=== PATIENT | male | born 1950 | race Caucasian/White ===

== ENCOUNTER 2022-04-20 09:36 | Inpatient (IN) | payer MEDICARE ==
[~2022-04-20] VITALS: Ht 182.9 cm; Wt 102.2 kg
[2022-04-20] MEDS ORDERED: VERA120C3 PO (10:05)
[2022-04-20] MEDS ORDERED: TAMS1CAP17 PO (10:05)
[2022-04-20] MEDS ORDERED: PRAV80TA2 PO (10:05)
[2022-04-20] MEDS ORDERED: XARE20TA PO (10:05)
[2022-04-20] MEDS ORDERED: DOXY100T PO (10:05)
[2022-04-20] MEDS ORDERED: ADV100INH INH (10:06)
[2022-04-20 11:35] LABS: BASO % 0.6 % (0.0-1.0); EOS % 0.3 % (0.0-3.0); HEMATOCRIT 27.5 % (42.0-52.0); LYMPH # 0.7 10^3/uL (1.5-5.0); LYMPH % 9.6 % (24.0-44.0); MEAN CORPUSCULAR HEMOGLOBIN 16.5 pg (27.0-33.0); MEAN CORPUSCULAR HGB CONC 25.5 g/dl (32.0-36.5); MONO # 0.5 10^3/uL (0.0-0.8); MONO % 7.2 % (2.0-8.0); NEUTROPHILS # 5.6 10^3/uL (1.5-8.5); PLATELET COUNT, AUTOMATED 352 10^3/uL (150-450); RED BLOOD COUNT 4.23 10^6/uL (4.30-6.10); WHITE BLOOD COUNT 6.8 10^3/uL (4.0-10.0)
[2022-04-20 11:44] LABS: INR 1.68; PROTHROMBIN TIME 20.2 SECONDS (12.7-14.5)
[2022-04-20 11:45] LABS: PARTIAL THROMBOPLASTIN TIME 40.3 SECONDS (25.9-37.0)
[2022-04-20 12:11] LABS: ALBUMIN 3.2 GM/DL (3.2-5.2); ALT/SGPT 16 U/L (12-78); BILIRUBIN,DIRECT 0.2 MG/DL (0.0-0.2); BILIRUBIN,TOTAL 0.5 MG/DL (0.2-1.0); BLOOD UREA NITROGEN 25 MG/DL (7-18); CALCIUM LEVEL 8.9 MG/DL (8.8-10.2); CARBON DIOXIDE LEVEL 26 MEQ/L (21-32); CHLORIDE LEVEL 110 MEQ/L (98-107); CREATININE FOR GFR 0.84 MG/DL (0.70-1.30); FERRITIN 17 NG/ML (26-388); GLOMERULAR FILTRATION RATE > 60.0 (>42); GLUCOSE, FASTING 100 MG/DL (70-100); LDH LACTATE DEHYDROGENASE 306 U/L (87-241); POTASSIUM SERUM 4.4 MEQ/L (3.5-5.1); SODIUM LEVEL 144 MEQ/L (136-145); TOTAL PROTEIN 6.4 GM/DL (6.4-8.2)
[2022-04-20] MEDS ORDERED: ALBUTEROL SULFATE 2.5 MG/0.5 ML INH NEB SOLN NEB PRN (13:05)
[2022-04-20] MEDS ORDERED: PANT40TA29 PO (14:31)
[2022-04-20] MEDS ORDERED: HOME MED LIST COMPLETE! XX SCH (14:35)
[2022-04-20] MEDS: FUROSEMIDE 40MG/4ML VIAL (J1940) IV SCH (14:48)
[2022-04-20 15:01] LABS: IRON (FE) 15 UG/DL (65-175); NT-PRO BNP 881 PG/ML (<125); PERCENT SATURATION 4.1 % (19.7-50.0); TOTAL IRON BINDING CAPACITY 369 UG/DL (250-450)
[2022-04-20 15:02] LABS: CK-MB VALUE MASS 2.1 NG/ML (<3.6); MB/CK RELATIVE INDEX 4.2 (< OR =4)
[2022-04-20 15:23] VITALS: BP 175/79
[2022-04-20 16:08] VITALS: BP 176/75
[2022-04-20 18:00] VITALS: BP 184/79
[2022-04-20 18:45] VITALS: BP 168/72
[2022-04-20] MEDS: ADVAIR HFA 45/21MCG INHALER INH SCH (19:58)
[2022-04-20 20:25] VITALS: BP 173/83
[2022-04-20 22:31] VITALS: BP 141/73
[2022-04-20] MEDS: SENNA 8.6 MG TAB (SENOKOT) PO SCH (22:36)
[2022-04-20] MEDS: PANTOPRAZOLE 40MG TAB (PROTONIX) PO SCH (22:37)
[2022-04-20] MEDS: DOCUSATE SODIUM 100MG CAPSULE PO SCH (22:37)
[2022-04-20] MEDS: FERROUS SULFATE 325MG TAB PO SCH (22:39)
[2022-04-20] MEDS: VERAPAMIL 120MG SR TAB PO SCH (22:39)
[2022-04-20] MEDS: TAMSULOSIN 0.4 MG CAP PO SCH (22:39)
[2022-04-20 23:08] LABS: HEMATOCRIT 30.9 % (42.0-52.0); HEMOGLOBIN 8.3 g/dl (13.5-17.5); MEAN CORPUSCULAR HGB CONC 26.9 g/dl (32.0-36.5); MEAN CORPUSCULAR VOLUME 67.2 fl (80.0-96.0); PLATELET COUNT, AUTOMATED 317 10^3/uL (150-450); WHITE BLOOD COUNT 6.7 10^3/uL (4.0-10.0)
[2022-04-21 06:18] VITALS: BP 133/57
[2022-04-21 06:45] LABS: HEMATOCRIT 27.8 % (42.0-52.0); HEMOGLOBIN 7.5 g/dl (13.5-17.5); MEAN CORPUSCULAR HEMOGLOBIN 17.9 pg (27.0-33.0); MEAN CORPUSCULAR VOLUME 66.3 fl (80.0-96.0); PLATELET COUNT, AUTOMATED 316 10^3/uL (150-450); RED BLOOD COUNT 4.19 10^6/uL (4.30-6.10); WHITE BLOOD COUNT 5.3 10^3/uL (4.0-10.0)
[2022-04-21 07:20] LABS: ALBUMIN 2.7 GM/DL (3.2-5.2); ALT/SGPT 13 U/L (12-78); BILIRUBIN,TOTAL 0.8 MG/DL (0.2-1.0); BLOOD UREA NITROGEN 17 MG/DL (7-18); CALCIUM LEVEL 8.2 MG/DL (8.8-10.2); CARBON DIOXIDE LEVEL 29 MEQ/L (21-32); CHLORIDE LEVEL 109 MEQ/L (98-107); CREATININE FOR GFR 0.83 MG/DL (0.70-1.30); GLOMERULAR FILTRATION RATE > 60.0 (>42); GLUCOSE, FASTING 80 MG/DL (70-100); POTASSIUM SERUM 3.8 MEQ/L (3.5-5.1); SODIUM LEVEL 144 MEQ/L (136-145); TOTAL PROTEIN 5.6 GM/DL (6.4-8.2)
[2022-04-21 07:30] VITALS: O2SAT 94
[2022-04-21] MEDS: ADVAIR HFA 45/21MCG INHALER INH SCH ×2 (07:30→20:07)
[2022-04-21] MEDS ORDERED: MIRALAX *UNIT DOSE* 17GM PACKET PO PRN (08:00)
[2022-04-21] MEDS: FERROUS SULFATE 325MG TAB PO SCH ×3 (08:56→20:17)
[2022-04-21] MEDS: DOCUSATE SODIUM 100MG CAPSULE PO SCH ×2 (08:56→20:11)
[2022-04-21] MEDS: FUROSEMIDE 40MG/4ML VIAL (J1940) IV SCH (08:56)
[2022-04-21] MEDS: PANTOPRAZOLE 40MG TAB (PROTONIX) PO SCH (08:56)
[2022-04-21] MEDS: PRAVASTATIN 20 MG TAB PO SCH (08:57)
[2022-04-21] MEDS ORDERED: LACTULOSE 20 GM/30 ML SYRUP UD PO ONE (10:20)
[2022-04-21] MEDS: BISACODYL 10 MG SUPP PR SCH ×2 (11:41→20:00)
[2022-04-21 14:00] VITALS: BP 119/52
[2022-04-21 17:07] LABS: HEMATOCRIT 29.1 % (42.0-52.0); HEMOGLOBIN 7.9 g/dl (13.5-17.5); MEAN CORPUSCULAR HGB CONC 27.1 g/dl (32.0-36.5); MEAN CORPUSCULAR VOLUME 66.1 fl (80.0-96.0); PLATELET COUNT, AUTOMATED 351 10^3/uL (150-450); WHITE BLOOD COUNT 6.2 10^3/uL (4.0-10.0)
[2022-04-21 20:00] VITALS: BP 131/60
[2022-04-21] MEDS: TAMSULOSIN 0.4 MG CAP PO SCH (20:11)
[2022-04-21] MEDS: VERAPAMIL 120MG SR TAB PO SCH (20:11)
[2022-04-21] MEDS: SENNA 8.6 MG TAB (SENOKOT) PO SCH (20:11)
[2022-04-22 06:00] VITALS: BP 128/57
[2022-04-22 06:00] LABS: HEMOGLOBIN 7.5 g/dl (13.5-17.5); MEAN CORPUSCULAR HEMOGLOBIN 17.8 pg (27.0-33.0); MEAN CORPUSCULAR HGB CONC 26.8 g/dl (32.0-36.5); MEAN CORPUSCULAR VOLUME 66.5 fl (80.0-96.0); PLATELET COUNT, AUTOMATED 347 10^3/uL (150-450); RED BLOOD COUNT 4.21 10^6/uL (4.30-6.10); WHITE BLOOD COUNT 5.1 10^3/uL (4.0-10.0)
[2022-04-22 06:29] LABS: ALBUMIN 2.7 GM/DL (3.2-5.2); ALT/SGPT 13 U/L (12-78); BILIRUBIN,TOTAL 0.5 MG/DL (0.2-1.0); BLOOD UREA NITROGEN 18 MG/DL (7-18); CALCIUM LEVEL 8.2 MG/DL (8.8-10.2); CARBON DIOXIDE LEVEL 29 MEQ/L (21-32); CHLORIDE LEVEL 108 MEQ/L (98-107); CREATININE FOR GFR 0.82 MG/DL (0.70-1.30); GLOMERULAR FILTRATION RATE > 60.0 (>42); GLUCOSE, FASTING 77 MG/DL (70-100); POTASSIUM SERUM 3.8 MEQ/L (3.5-5.1); SODIUM LEVEL 143 MEQ/L (136-145); TOTAL PROTEIN 5.6 GM/DL (6.4-8.2)
[2022-04-22 07:48] VITALS: O2SAT 98
[2022-04-22] MEDS: ADVAIR HFA 45/21MCG INHALER INH SCH ×2 (07:48→19:47)
[2022-04-22] MEDS: BISACODYL 10 MG SUPP PR SCH ×2 (09:35→20:33)
[2022-04-22] MEDS: PANTOPRAZOLE 40MG TAB (PROTONIX) PO SCH (09:36)
[2022-04-22] MEDS: DOCUSATE SODIUM 100MG CAPSULE PO SCH ×2 (09:36→20:29)
[2022-04-22] MEDS: PRAVASTATIN 20 MG TAB PO SCH (09:36)
[2022-04-22] MEDS: FERROUS SULFATE 325MG TAB PO SCH ×2 (09:36→20:33)
[2022-04-22 14:00] VITALS: BP 146/68
[2022-04-22] MEDS ORDERED: BISACODYL 5 MG TAB PO ONE (20:00)
[2022-04-22] MEDS ORDERED: GOLYTELY SOLN 4000 ML BTL PO ONE (20:00)
[2022-04-22] MEDS: SENNA 8.6 MG TAB (SENOKOT) PO SCH (20:29)
[2022-04-22] MEDS: TAMSULOSIN 0.4 MG CAP PO SCH (20:29)
[2022-04-22] MEDS: VERAPAMIL 120MG SR TAB PO SCH (20:32)
[2022-04-22 22:00] VITALS: BP 145/67
[2022-04-23 05:11] VITALS: BP 127/55
[2022-04-23 06:47] LABS: HEMATOCRIT 30.7 % (42.0-52.0); HEMOGLOBIN 8.4 g/dl (13.5-17.5); MEAN CORPUSCULAR HEMOGLOBIN 18.3 pg (27.0-33.0); MEAN CORPUSCULAR HGB CONC 27.4 g/dl (32.0-36.5); MEAN CORPUSCULAR VOLUME 66.7 fl (80.0-96.0); PLATELET COUNT, AUTOMATED 398 10^3/uL (150-450); WHITE BLOOD COUNT 5.5 10^3/uL (4.0-10.0)
[2022-04-23 07:08] LABS: ALBUMIN 3.1 GM/DL (3.2-5.2); ALT/SGPT 14 U/L (12-78); BILIRUBIN,TOTAL 0.5 MG/DL (0.2-1.0); BLOOD UREA NITROGEN 10 MG/DL (7-18); CALCIUM LEVEL 8.6 MG/DL (8.8-10.2); CARBON DIOXIDE LEVEL 30 MEQ/L (21-32); CHLORIDE LEVEL 106 MEQ/L (98-107); CREATININE FOR GFR 0.81 MG/DL (0.70-1.30); GLOMERULAR FILTRATION RATE > 60.0 (>42); GLUCOSE, FASTING 82 MG/DL (70-100); POTASSIUM SERUM 3.5 MEQ/L (3.5-5.1); SODIUM LEVEL 141 MEQ/L (136-145); TOTAL PROTEIN 6.3 GM/DL (6.4-8.2)
[2022-04-23] MEDS: ADVAIR HFA 45/21MCG INHALER INH SCH ×2 (07:32→19:35)
[2022-04-23] MEDS: FERROUS SULFATE 325MG TAB PO SCH ×2 (08:56→22:11)
[2022-04-23] MEDS: PANTOPRAZOLE 40MG TAB (PROTONIX) PO SCH (08:56)
[2022-04-23] MEDS: PRAVASTATIN 20 MG TAB PO SCH (08:56)
[2022-04-23] MEDS: DOCUSATE SODIUM 100MG CAPSULE PO SCH ×2 (08:57→21:00)
[2022-04-23] MEDS: BISACODYL 10 MG SUPP PR SCH ×2 (08:57→21:00)
[2022-04-23] MEDS ORDERED: propofoL 200 MG/20 ML VIAL As Ordered ONE (15:23)
[2022-04-23] MEDS ORDERED: LIDOCAINE 2% 100MG/5ML SDV (FOR ANES.) As Ordered ONE (15:23)
[2022-04-23 16:58] VITALS: BP 149/60
[2022-04-23 17:28] VITALS: BP 149/61
[2022-04-23] MEDS ORDERED: MIRA1POW3 PO (19:06)
[2022-04-23] MEDS ORDERED: COLA100C5 PO (19:06)
[2022-04-23] MEDS ORDERED: SENN18TA PO (19:06)
[2022-04-23] MEDS ORDERED: FERR1TAB8 PO (19:06)
[2022-04-23 20:51] VITALS: BP 139/60
[2022-04-23] MEDS: SENNA 8.6 MG TAB (SENOKOT) PO SCH (21:00)
[2022-04-23] MEDS ORDERED: IRON SUCROSE 100 MG in NS 100 ML OVER 1 HR IV SCH (21:00)
[2022-04-23] MEDS: TAMSULOSIN 0.4 MG CAP PO SCH (22:11)
[2022-04-23 22:12] VITALS: BP 150/64
[2022-04-23] MEDS: VERAPAMIL 120MG SR TAB PO SCH (22:12)
[2022-04-24 05:18] VITALS: BP 139/61
[2022-04-24 06:09] LABS: HEMATOCRIT 27.3 % (42.0-52.0); HEMOGLOBIN 7.4 g/dl (13.5-17.5); MEAN CORPUSCULAR HEMOGLOBIN 18.2 pg (27.0-33.0); MEAN CORPUSCULAR HGB CONC 27.1 g/dl (32.0-36.5); MEAN CORPUSCULAR VOLUME 67.1 fl (80.0-96.0); PLATELET COUNT, AUTOMATED 360 10^3/uL (150-450); RED BLOOD COUNT 4.07 10^6/uL (4.30-6.10)
[2022-04-24 06:33] LABS: ALBUMIN 2.6 GM/DL (3.2-5.2); ALT/SGPT 11 U/L (12-78); BILIRUBIN,TOTAL 0.4 MG/DL (0.2-1.0); BLOOD UREA NITROGEN 10 MG/DL (7-18); CALCIUM LEVEL 8.1 MG/DL (8.8-10.2); CARBON DIOXIDE LEVEL 29 MEQ/L (21-32); CHLORIDE LEVEL 109 MEQ/L (98-107); CREATININE FOR GFR 0.78 MG/DL (0.70-1.30); GLOMERULAR FILTRATION RATE > 60.0 (>42); GLUCOSE, FASTING 68 MG/DL (70-100); POTASSIUM SERUM 3.9 MEQ/L (3.5-5.1); SODIUM LEVEL 142 MEQ/L (136-145); TOTAL PROTEIN 5.3 GM/DL (6.4-8.2)
[2022-04-24] MEDS: ADVAIR HFA 45/21MCG INHALER INH SCH (07:51)
[2022-04-24 07:52] VITALS: O2SAT 99
[2022-04-24] MEDS: FERROUS SULFATE 325MG TAB PO SCH (08:28)
[2022-04-24] MEDS: PRAVASTATIN 20 MG TAB PO SCH (08:28)
[2022-04-24] MEDS: BISACODYL 10 MG SUPP PR SCH (08:28)
[2022-04-24] MEDS: DOCUSATE SODIUM 100MG CAPSULE PO SCH (08:28)
[2022-04-24] MEDS: PANTOPRAZOLE 40MG TAB (PROTONIX) PO SCH (08:28)
[2022-04-24] MEDS ORDERED: FUROSEMIDE 40 MG TAB PO SCH (09:00)
[2022-04-24] MEDS ORDERED: IRON SUCROSE 100 MG in NS 100 ML OVER 1 HR IV ONE (10:00)
[2022-04-24 12:54] VITALS: BP 139/61
[2022-04-24 13:07] VITALS: BP 141/62
[2022-04-24 14:07] VITALS: BP 152/69
[2022-04-24 14:26] VITALS: BP 105/72
[2022-04-24 15:34] LABS: HEMATOCRIT 32.9 % (42.0-52.0); HEMOGLOBIN 9.1 g/dl (13.5-17.5); MEAN CORPUSCULAR HEMOGLOBIN 19.2 pg (27.0-33.0); MEAN CORPUSCULAR HGB CONC 27.7 g/dl (32.0-36.5); MEAN CORPUSCULAR VOLUME 69.6 fl (80.0-96.0); PLATELET COUNT, AUTOMATED 393 10^3/uL (150-450); RED BLOOD COUNT 4.73 10^6/uL (4.30-6.10); WHITE BLOOD COUNT 5.2 10^3/uL (4.0-10.0)
[2022-04-24] MEDS ORDERED: LASI40TA9 PO (16:34)
== END 2022-04-24 17:49 | disposition home or self-care (01) | DRG 375 ==
LOC: M ED 09:36 → M ED INP 13:01 → ENRESERV 20:51 → M MSPAV 22:23
PROVIDERS: ADMIT Internal Medicine; ATTEND Internal Medicine
PROC: 0DB98ZX Excision of Duodenum, Via Natural or Artificial Opening Endoscopic, Diagnostic (ICD-10-PCS; 2022-04-23)
PROC: 0DBK8ZX Excision of Ascending Colon, Via Natural or Artificial Opening Endoscopic, Diagnostic (ICD-10-PCS; principal; 2022-04-23 15:00)
DX: C18.2 Malignant neoplasm of ascending colon (principal); J96.11 Chronic respiratory failure with hypoxia; D50.9 Iron deficiency anemia, unspecified; N40.0 Benign prostatic hyperplasia without lower urinary tract symptoms; G47.33 Obstructive sleep apnea (adult) (pediatric); E78.5 Hyperlipidemia, unspecified; Z79.01 Long term (current) use of anticoagulants; I48.91 Unspecified atrial fibrillation; R53.1 Weakness; I10 Essential (primary) hypertension; J44.9 Chronic obstructive pulmonary disease, unspecified; K46.9 Unspecified abdominal hernia without obstruction or gangrene; Z79.899 Other long term (current) drug therapy; I45.10 Unspecified right bundle-branch block; Z87.891 Personal history of nicotine dependence; K57.30 Diverticulosis of large intestine without perforation or abscess without bleeding; K31.7 Polyp of stomach and duodenum; K64.8 Other hemorrhoids

== ENCOUNTER → 2022-04-30 | Outpatient (CLI) | payer MEDICARE ==
[~2022-04-30] MED LIST: ADV100INH INH; COLA100C5 PO; DOXY100T PO; FERR1TAB8 PO; LASI40TA9 PO; MIRA1POW3 PO; PANT40TA29 PO; PRAV80TA2 PO; SENN18TA PO; TAMS1CAP17 PO; VERA120C3 PO; XARE20TA PO
== END ==
LOC: M PLAIMG 12:40
PROVIDERS: ATTEND General Practice
DX: C18.2 Malignant neoplasm of ascending colon (principal); J43.9 Emphysema, unspecified; I99.9 Unspecified disorder of circulatory system

== ENCOUNTER → 2022-05-09 | Outpatient (CLI) | payer MEDICARE ==
[~2022-05-09] MED LIST changes: +GASTROGRAFIN SOLUTION 30ML (Q9963) As Ordered ONE; +ISOVUE-370 76% 100ML VIAL As Ordered ONE
== END ==
LOC: M RAD 16:07
PROVIDERS: ATTEND Physician Assistant
DX: C18.2 Malignant neoplasm of ascending colon (principal)
CPT/HCPCS: 71260; 74178; Q9963; Q9967

== ENCOUNTER → 2022-05-12 | Outpatient (CLI) | payer MEDICARE ==
[~2022-05-12] MED LIST changes: +FURO20TA2 PO; +FURO40TA2 PO; -GASTROGRAFIN SOLUTION 30ML (Q9963) As Ordered ONE; -ISOVUE-370 76% 100ML VIAL As Ordered ONE; +METR-265 PO
== END ==
LOC: M LABSMTC 11:05
PROVIDERS: ATTEND Anesthesiology
DX: Z01.812 Encounter for preprocedural laboratory examination (principal); Z20.822 Contact with and (suspected) exposure to COVID-19

== ENCOUNTER 2022-05-16 05:58 | Inpatient (IN) | payer MEDICARE ==
[~2022-05-16] VITALS: Ht 182.9 cm; Wt 88.1 kg
[2022-05-16] VITALS (8 sets, daily range): BP systolic 141–151; BP diastolic 62–69; O2SAT 95
[~2022-05-16 05:58] MED LIST changes: -FURO20TA2 PO; -FURO40TA2 PO; -METR-265 PO
[2022-05-16] MEDS ORDERED: HEPARIN SOD (PORCINE) 5000UNITS/ML 1ML VIAL/SYRINGE SQ ONE (06:00)
[2022-05-16] MEDS ORDERED: CelecoXIB 400 MG CAP PO ONE (06:00)
[2022-05-16] MEDS ORDERED: cefoTEtan DISODIUM 2 GM in D5W MINI-BAG PLUS 50 ML IV ONE (06:00)
[2022-05-16] MEDS ORDERED: LR 1,000 ML IV SCH ×2 (06:35→13:50)
[2022-05-16] MEDS ORDERED: METR-265 PO (06:38)
[2022-05-16] MEDS ORDERED: LIDOCAINE 1% SDV 30ML VIAL As Ordered ONE (07:16)
[2022-05-16] MEDS ORDERED: BUPIVACAINE HCL 0.25% 10ML VIAL As Ordered ONE (07:16)
[2022-05-16] MEDS ORDERED: BUPIVACAINE LIPOSOME/PF 1.3% 20ML VIAL (13.3MG/ML)(EXPAREL) As Ordered ONE (07:17)
[2022-05-16] MEDS ORDERED: LACRILUBE (AKWA TEARS) OPHTH OINT 3.5 GM As Ordered ONE (07:17)
[2022-05-16] MEDS ORDERED: BUPIVACAINE HCL 0.25% 30ML VIAL As Ordered ONE (07:17)
[2022-05-16] MEDS ORDERED: IPRATROPIUM 0.5MG/ALBUTEROL 2.5MG INH SOL UD 3ML (DUONEB) NEB ONE (07:20)
[2022-05-16] MEDS ORDERED: propofoL 200 MG/20 ML VIAL As Ordered ONE ×3 (07:20→13:30)
[2022-05-16] MEDS ORDERED: ONDANSETRON 4MG 2ML VIAL As Ordered ONE (07:21)
[2022-05-16] MEDS ORDERED: ROCURONIUM BROMIDE 50 MG/5 ML VIAL As Ordered ONE (07:21)
[2022-05-16] MEDS ORDERED: LIDOCAINE 2% 100MG/5ML SDV (FOR ANES.) As Ordered ONE ×3 (07:21→11:47)
[2022-05-16] MEDS ORDERED: fentaNYL 100 MCG/2 ML INJECTION As Ordered ONE ×2 (07:21→09:22)
[2022-05-16] MEDS ORDERED: dexameTHASONE 4 MG/ML 1ML VIAL (J1100 PER 1MG) As Ordered ONE (07:21)
[2022-05-16] MEDS ORDERED: metroNIDAZOLE 500 MG in IV 1 EA IV ONE (07:35)
[2022-05-16] MEDS ORDERED: MIDAZOLAM INJ 2MG/2ML VIAL (J2250 PER 1MG) As Ordered ONE (07:43)
[2022-05-16] MEDS ORDERED: VECURONIUM BROMIDE 10MG VIAL As Ordered ONE (08:27)
[2022-05-16] MEDS ORDERED: INDOCYANINE GREEN 25MG VIAL (IC-GREEN) As Ordered ONE (11:36)
[2022-05-16] MEDS ORDERED: KETOROLAC 60MG 2ML VIAL As Ordered ONE (12:07)
[2022-05-16] MEDS ORDERED: SUGAMMADEX SODIUM 500 MG/5 ML VIAL (BRIDION) As Ordered ONE (12:07)
[2022-05-16] MEDS ORDERED: ACETAMINOPHEN 1000MG 100ML IV BTL (OFIRMEV) (J0131 PER 10MG) As Ordered ONE (12:13)
[2022-05-16] MEDS ORDERED: MORPHINE 2 MG/ML 1ML VIAL IV PRN (13:50)
[2022-05-16] MEDS ORDERED: oxyCODONE 5MG TAB PO PRN (13:50)
[2022-05-16] MEDS ORDERED: fentaNYL 100 MCG/2 ML INJECTION IV PRN (13:50)
[2022-05-16] MEDS ORDERED: ONDANSETRON 4MG 2ML VIAL IV PRN (13:50)
[2022-05-16] MEDS ORDERED: MORPHINE 4 MG/ML 1ML VIAL/SYRINGE IV PRN (14:00)
[2022-05-16] MEDS: LR 1,000 ML IV SCH ×2 (15:58→20:32)
[2022-05-16] MEDS: ACETAMINOPHEN TAB 650MG DOSE (2X325MG) PO SCH (17:13)
[2022-05-16] MEDS ORDERED: FURO20TA2 PO (17:45)
[2022-05-16] MEDS ORDERED: FERR1TAB8 PO (17:45)
[2022-05-16] MEDS ORDERED: FURO40TA2 PO (17:46)
[2022-05-16] MEDS ORDERED: HOME MED LIST COMPLETE! XX SCH (17:50)
[2022-05-16] MEDS: TAMSULOSIN 0.4 MG CAP PO SCH (20:30)
[2022-05-16] MEDS: FERROUS SULFATE 325MG TAB PO SCH (20:30)
[2022-05-16] MEDS: oxyCODONE 5MG TAB PO PRN (20:31)
[2022-05-16] MEDS: ADVAIR HFA 45/21MCG INHALER INH SCH (20:48)
[2022-05-16] MEDS ORDERED: VERAPAMIL 120MG SR TAB PO SCH (21:00)
[2022-05-17] VITALS (8 sets, daily range): BP systolic 114–146; BP diastolic 52–95; O2SAT 96–97
[2022-05-17] MEDS: ACETAMINOPHEN TAB 650MG DOSE (2X325MG) PO SCH ×4 (00:07→17:13)
[2022-05-17] MEDS: LR 1,000 ML IV SCH ×2 (06:08→17:13)
[2022-05-17 06:10] LABS: BASO % 0.1 % (0.0-1.0); HEMATOCRIT 34.6 % (42.0-52.0); HEMOGLOBIN 10.1 g/dl (13.5-17.5); LYMPH # 0.5 10^3/uL (1.5-5.0); MEAN CORPUSCULAR HGB CONC 29.2 g/dl (32.0-36.5); MEAN CORPUSCULAR VOLUME 75.2 fl (80.0-96.0); MONO # 0.5 10^3/uL (0.0-0.8); MONO % 4.3 % (2.0-8.0); NEUTROPHILS # 10.5 10^3/uL (1.5-8.5); NEUTROPHILS % 91.1 % (36.0-66.0); PLATELET COUNT, AUTOMATED 239 10^3/uL (150-450); WHITE BLOOD COUNT 11.5 10^3/uL (4.0-10.0)
[2022-05-17 06:42] LABS: BLOOD UREA NITROGEN 16 MG/DL (7-18); CARBON DIOXIDE LEVEL 26 MEQ/L (21-32); CHLORIDE LEVEL 105 MEQ/L (98-107); GLOMERULAR FILTRATION RATE > 60.0 (>42); GLUCOSE, FASTING 124 MG/DL (70-100); SODIUM LEVEL 137 MEQ/L (136-145)
[2022-05-17] MEDS: ADVAIR HFA 45/21MCG INHALER INH SCH ×2 (07:11→19:35)
[2022-05-17 07:12] LABS: HYPOCHROMASIA 3+; OVALOCYTES 2+
[2022-05-17 07:13] LABS: ANISOCYTOSIS 2+; PLATELET ESTIMATE NORMAL (NORMAL)
[2022-05-17] MEDS: FERROUS SULFATE 325MG TAB PO SCH ×2 (08:25→20:08)
[2022-05-17] MEDS: PANTOPRAZOLE 40MG VIAL IV SCH (08:26)
[2022-05-17] MEDS: ENOXAPARIN 40MG/0.4ML SYRINGE (J1650 PER 10MG) SC SCH (08:26)
[2022-05-17] MEDS: ALVIMOPAN 12 MG CAPSULE (ENTEREG) PO SCH ×2 (10:24→20:08)
[2022-05-17] MEDS: TAMSULOSIN 0.4 MG CAP PO SCH (20:08)
[2022-05-17] MEDS: oxyCODONE 5MG TAB PO PRN (20:08)
[2022-05-17] MEDS: PRAVASTATIN 20 MG TAB PO SCH (20:08)
[2022-05-18] MEDS: ACETAMINOPHEN TAB 650MG DOSE (2X325MG) PO SCH ×4 (01:25→17:58)
[2022-05-18] MEDS: LR 1,000 ML IV SCH ×2 (03:57→20:04)
[2022-05-18 06:00] VITALS: BP 146/73
[2022-05-18 06:18] LABS: BASO % 0.2 % (0.0-1.0); EOS % 0.1 % (0.0-3.0); HEMATOCRIT 37.5 % (42.0-52.0); HEMOGLOBIN 10.5 g/dl (13.5-17.5); LYMPH # 0.8 10^3/uL (1.5-5.0); LYMPH % 7.2 % (24.0-44.0); MEAN CORPUSCULAR HEMOGLOBIN 21.3 pg (27.0-33.0); MEAN CORPUSCULAR VOLUME 76.2 fl (80.0-96.0); MONO # 0.6 10^3/uL (0.0-0.8); MONO % 5.1 % (2.0-8.0); NEUTROPHILS # 9.5 10^3/uL (1.5-8.5); NEUTROPHILS % 86.9 % (36.0-66.0); PLATELET COUNT, AUTOMATED 232 10^3/uL (150-450); RED BLOOD COUNT 4.92 10^6/uL (4.30-6.10); WHITE BLOOD COUNT 10.9 10^3/uL (4.0-10.0)
[2022-05-18 06:58] LABS: OVALOCYTES 1+
[2022-05-18 06:59] LABS: ANISOCYTOSIS 2+; HYPOCHROMASIA 2+
[2022-05-18 07:00] LABS: POIKILOCYTOSIS 1+
[2022-05-18 07:01] LABS: MICROCYTOSIS 1+; SCHISTOCYTES 1+
[2022-05-18 07:02] LABS: PLATELET ESTIMATE NORMAL (NORMAL)
[2022-05-18 07:03] LABS: BLOOD UREA NITROGEN 10 MG/DL (7-18); C REACTIVE PROTEIN QUANTITATIV 8.28 MG/DL (0.00-0.30); CALCIUM LEVEL 8.6 MG/DL (8.8-10.2); CARBON DIOXIDE LEVEL 31 MEQ/L (21-32); CHLORIDE LEVEL 106 MEQ/L (98-107); GLOMERULAR FILTRATION RATE > 60.0 (>42); GLUCOSE, FASTING 96 MG/DL (70-100); POTASSIUM SERUM 4.1 MEQ/L (3.5-5.1); SODIUM LEVEL 138 MEQ/L (136-145)
[2022-05-18] MEDS: ADVAIR HFA 45/21MCG INHALER INH SCH ×2 (07:33→19:37)
[2022-05-18 07:34] VITALS: O2SAT 93
[2022-05-18] MEDS: FERROUS SULFATE 325MG TAB PO SCH ×2 (08:21→20:04)
[2022-05-18] MEDS: PANTOPRAZOLE 40MG VIAL IV SCH (08:21)
[2022-05-18] MEDS: ENOXAPARIN 40MG/0.4ML SYRINGE (J1650 PER 10MG) SC SCH (08:21)
[2022-05-18] MEDS: ALVIMOPAN 12 MG CAPSULE (ENTEREG) PO SCH ×2 (08:21→20:03)
[2022-05-18 14:00] VITALS: BP 133/76
[2022-05-18] MEDS: oxyCODONE 5MG TAB PO PRN (14:43)
[2022-05-18] MEDS: ONDANSETRON 4MG 2ML VIAL IV PRN (17:58)
[2022-05-18] MEDS: PRAVASTATIN 20 MG TAB PO SCH (20:03)
[2022-05-18] MEDS: TAMSULOSIN 0.4 MG CAP PO SCH (20:04)
[2022-05-18 20:15] VITALS: O2SAT 97
[2022-05-18] MEDS: KETOROLAC 30 MG/ML 1ML VIAL IV PRN (20:33)
[2022-05-18 21:19] VITALS: BP 139/76
[2022-05-19] VITALS (9 sets, daily range): BP systolic 147–184; BP diastolic 73–92; O2SAT 93–98
[2022-05-19] MEDS: ACETAMINOPHEN TAB 650MG DOSE (2X325MG) PO SCH ×4 (03:28→17:13)
[2022-05-19] MEDS: KETOROLAC 30 MG/ML 1ML VIAL IV PRN ×3 (04:43→18:34)
[2022-05-19 05:56] LABS: BASO % 0.2 % (0.0-1.0); EOS # 0.4 10^3/uL (0.0-0.5); EOS % 4.3 % (0.0-3.0); HEMATOCRIT 36.4 % (42.0-52.0); HEMOGLOBIN 10.5 g/dl (13.5-17.5); LYMPH # 0.8 10^3/uL (1.5-5.0); LYMPH % 9.2 % (24.0-44.0); MEAN CORPUSCULAR HEMOGLOBIN 22.1 pg (27.0-33.0); MEAN CORPUSCULAR HGB CONC 28.8 g/dl (32.0-36.5); MEAN CORPUSCULAR VOLUME 76.5 fl (80.0-96.0); MONO # 0.5 10^3/uL (0.0-0.8); MONO % 6.1 % (2.0-8.0); NEUTROPHILS # 6.8 10^3/uL (1.5-8.5); NEUTROPHILS % 79.6 % (36.0-66.0); PLATELET COUNT, AUTOMATED 233 10^3/uL (150-450); RED BLOOD COUNT 4.76 10^6/uL (4.30-6.10); WHITE BLOOD COUNT 8.6 10^3/uL (4.0-10.0)
[2022-05-19 06:24] LABS: BLOOD UREA NITROGEN 10 MG/DL (7-18); C REACTIVE PROTEIN QUANTITATIV 5.03 MG/DL (0.00-0.30); CALCIUM LEVEL 8.5 MG/DL (8.8-10.2); CARBON DIOXIDE LEVEL 28 MEQ/L (21-32); CHLORIDE LEVEL 106 MEQ/L (98-107); CREATININE FOR GFR 0.76 MG/DL (0.70-1.30); GLOMERULAR FILTRATION RATE > 60.0 (>42); GLUCOSE, FASTING 88 MG/DL (70-100); POTASSIUM SERUM 3.6 MEQ/L (3.5-5.1); SODIUM LEVEL 139 MEQ/L (136-145)
[2022-05-19 06:33] LABS: ANISOCYTOSIS 2+
[2022-05-19 06:34] LABS: POIKILOCYTOSIS 1+; SCHISTOCYTES 2+
[2022-05-19 06:35] LABS: OVALOCYTES 1+
[2022-05-19 06:37] LABS: MICROCYTOSIS 1+
[2022-05-19 06:38] LABS: POLYCHROMASIA 1+
[2022-05-19 06:39] LABS: PLATELET ESTIMATE NORMAL (NORMAL)
[2022-05-19 06:40] LABS: HYPOCHROMASIA 1+
[2022-05-19] MEDS: ADVAIR HFA 45/21MCG INHALER INH SCH ×2 (08:50→20:10)
[2022-05-19] MEDS: ENOXAPARIN 40MG/0.4ML SYRINGE (J1650 PER 10MG) SC SCH (08:54)
[2022-05-19] MEDS: LR 1,000 ML IV SCH ×2 (08:54→23:04)
[2022-05-19] MEDS: FERROUS SULFATE 325MG TAB PO SCH ×2 (08:54→23:03)
[2022-05-19] MEDS: PANTOPRAZOLE 40MG VIAL IV SCH (08:54)
[2022-05-19] MEDS: ALVIMOPAN 12 MG CAPSULE (ENTEREG) PO SCH ×2 (08:54→23:03)
[2022-05-19] MEDS: PRAVASTATIN 20 MG TAB PO SCH (23:03)
[2022-05-19] MEDS: TAMSULOSIN 0.4 MG CAP PO SCH (23:03)
[2022-05-19] MEDS: oxyCODONE 5MG TAB PO PRN (23:04)
[2022-05-19] MEDS: ONDANSETRON 4MG 2ML VIAL IV PRN (23:17)
[2022-05-20] MEDS: KETOROLAC 30 MG/ML 1ML VIAL IV PRN ×2 (02:24→18:17)
[2022-05-20 04:54] VITALS: O2SAT 98
[2022-05-20 05:51] VITALS: BP 152/77
[2022-05-20] MEDS: ACETAMINOPHEN TAB 650MG DOSE (2X325MG) PO SCH ×4 (05:54→18:00)
[2022-05-20 06:12] LABS: BASO % 0.5 % (0.0-1.0); EOS # 0.3 10^3/uL (0.0-0.5); HEMATOCRIT 35.7 % (42.0-52.0); HEMOGLOBIN 10.2 g/dl (13.5-17.5); LYMPH # 0.7 10^3/uL (1.5-5.0); LYMPH % 11.2 % (24.0-44.0); MEAN CORPUSCULAR HEMOGLOBIN 21.7 pg (27.0-33.0); MEAN CORPUSCULAR HGB CONC 28.6 g/dl (32.0-36.5); MONO # 0.4 10^3/uL (0.0-0.8); NEUTROPHILS # 4.7 10^3/uL (1.5-8.5); PLATELET COUNT, AUTOMATED 217 10^3/uL (150-450); WHITE BLOOD COUNT 6.2 10^3/uL (4.0-10.0)
[2022-05-20 06:50] LABS: BLOOD UREA NITROGEN 10 MG/DL (7-18); CARBON DIOXIDE LEVEL 27 MEQ/L (21-32); CHLORIDE LEVEL 103 MEQ/L (98-107); CREATININE FOR GFR 0.64 MG/DL (0.70-1.30); GLOMERULAR FILTRATION RATE > 60.0 (>42); GLUCOSE, FASTING 71 MG/DL (70-100); POTASSIUM SERUM 3.5 MEQ/L (3.5-5.1); SODIUM LEVEL 137 MEQ/L (136-145)
[2022-05-20 07:02] LABS: ANISOCYTOSIS 4+; HYPOCHROMASIA 1+; MICROCYTOSIS 1+; PLATELET ESTIMATE NORMAL (NORMAL); POIKILOCYTOSIS 1+
[2022-05-20 07:03] LABS: OVALOCYTES 2+; SCHISTOCYTES 2+
[2022-05-20] MEDS: ADVAIR HFA 45/21MCG INHALER INH SCH ×2 (08:12→21:21)
[2022-05-20] MEDS: PANTOPRAZOLE 40MG VIAL IV SCH (09:14)
[2022-05-20] MEDS: FERROUS SULFATE 325MG TAB PO SCH ×2 (09:15→20:20)
[2022-05-20] MEDS: ALVIMOPAN 12 MG CAPSULE (ENTEREG) PO SCH ×2 (09:15→20:20)
[2022-05-20] MEDS: ENOXAPARIN 40MG/0.4ML SYRINGE (J1650 PER 10MG) SC SCH (09:15)
[2022-05-20] MEDS: oxyCODONE 5MG TAB PO PRN ×2 (09:50→20:21)
[2022-05-20 10:10] VITALS: O2SAT 98
[2022-05-20] MEDS: LR 1,000 ML IV SCH (13:56)
[2022-05-20 14:00] VITALS: BP 166/77
[2022-05-20] MEDS: TAMSULOSIN 0.4 MG CAP PO SCH (20:20)
[2022-05-20] MEDS: ONDANSETRON 4MG 2ML VIAL IV PRN (20:20)
[2022-05-20] MEDS: PRAVASTATIN 20 MG TAB PO SCH (20:21)
[2022-05-20 21:00] VITALS: BP 165/74
[2022-05-21] MEDS: LR 1,000 ML IV SCH ×2 (04:00→17:55)
[2022-05-21] MEDS: ACETAMINOPHEN TAB 650MG DOSE (2X325MG) PO SCH ×4 (05:06→17:08)
[2022-05-21 05:16] VITALS: BP 163/74
[2022-05-21] MEDS: ONDANSETRON 4MG 2ML VIAL IV PRN ×2 (05:57→20:20)
[2022-05-21] MEDS: GASTROGRAFIN SOLUTION 30ML PO SCH ×2 (06:04→06:34)
[2022-05-21] MEDS: KETOROLAC 30 MG/ML 1ML VIAL IV PRN (06:27)
[2022-05-21] MEDS ORDERED: ISOVUE-370 76% 100ML VIAL As Ordered ONE (07:10)
[2022-05-21] MEDS: ADVAIR HFA 45/21MCG INHALER INH SCH ×2 (08:14→19:13)
[2022-05-21] MEDS ORDERED: MIRALAX *UNIT DOSE* 17GM PACKET PO ONE (09:00)
[2022-05-21 09:45] VITALS: O2SAT 95
[2022-05-21] MEDS: PANTOPRAZOLE 40MG VIAL IV SCH (09:46)
[2022-05-21] MEDS: ENOXAPARIN 40MG/0.4ML SYRINGE (J1650 PER 10MG) SC SCH (09:47)
[2022-05-21] MEDS: FERROUS SULFATE 325MG TAB PO SCH ×2 (09:47→20:21)
[2022-05-21] MEDS: VERAPAMIL 120MG SR TAB PO SCH (09:47)
[2022-05-21] MEDS: ALVIMOPAN 12 MG CAPSULE (ENTEREG) PO SCH ×2 (09:47→20:21)
[2022-05-21 10:30] VITALS: BP 150/74
[2022-05-21] MEDS: oxyCODONE 5MG TAB PO PRN ×3 (10:41→20:22)
[2022-05-21 14:00] VITALS: BP 144/76
[2022-05-21] MEDS: TAMSULOSIN 0.4 MG CAP PO SCH (20:21)
[2022-05-21] MEDS: PRAVASTATIN 20 MG TAB PO SCH (20:22)
[2022-05-21 22:00] VITALS: BP 147/75
[2022-05-22] MEDS: ACETAMINOPHEN TAB 650MG DOSE (2X325MG) PO SCH ×4 (00:46→17:39)
[2022-05-22 06:00] VITALS: BP 144/75
[2022-05-22 07:24] LABS: EOS # 0.4 10^3/uL (0.0-0.5); EOS % 9.6 % (0.0-3.0); HEMATOCRIT 36.1 % (42.0-52.0); HEMOGLOBIN 10.3 g/dl (13.5-17.5); LYMPH # 0.5 10^3/uL (1.5-5.0); LYMPH % 11.4 % (24.0-44.0); MEAN CORPUSCULAR HEMOGLOBIN 21.8 pg (27.0-33.0); MEAN CORPUSCULAR HGB CONC 28.5 g/dl (32.0-36.5); MEAN CORPUSCULAR VOLUME 76.3 fl (80.0-96.0); MONO # 0.6 10^3/uL (0.0-0.8); MONO % 14.1 % (2.0-8.0); NEUTROPHILS # 2.6 10^3/uL (1.5-8.5); NEUTROPHILS % 63.7 % (36.0-66.0); PLATELET COUNT, AUTOMATED 214 10^3/uL (150-450); RED BLOOD COUNT 4.73 10^6/uL (4.30-6.10); WHITE BLOOD COUNT 4.1 10^3/uL (4.0-10.0)
[2022-05-22 07:31] LABS: BLOOD UREA NITROGEN 12 MG/DL (7-18); C REACTIVE PROTEIN QUANTITATIV 9.24 MG/DL (0.00-0.30); CALCIUM LEVEL 8.2 MG/DL (8.8-10.2); CARBON DIOXIDE LEVEL 27 MEQ/L (21-32); CHLORIDE LEVEL 103 MEQ/L (98-107); CREATININE FOR GFR 0.56 MG/DL (0.70-1.30); GLOMERULAR FILTRATION RATE > 60.0 (>42); GLUCOSE, FASTING 66 MG/DL (70-100); POTASSIUM SERUM 3.3 MEQ/L (3.5-5.1); SODIUM LEVEL 137 MEQ/L (136-145)
[2022-05-22] MEDS: LR 1,000 ML IV SCH (07:31)
[2022-05-22] MEDS: ADVAIR HFA 45/21MCG INHALER INH SCH ×2 (07:35→19:18)
[2022-05-22] MEDS: MOM 30ML SUSPENSION UDC PO SCH ×4 (08:49→20:27)
[2022-05-22] MEDS: PANTOPRAZOLE 40MG VIAL IV SCH (08:50)
[2022-05-22] MEDS: POTASSIUM CHLORIDE 10MEQ SR TABLET PO SCH (08:51)
[2022-05-22] MEDS: ALVIMOPAN 12 MG CAPSULE (ENTEREG) PO SCH ×2 (08:52→20:20)
[2022-05-22] MEDS: FERROUS SULFATE 325MG TAB PO SCH ×2 (08:52→20:20)
[2022-05-22] MEDS: VERAPAMIL 120MG SR TAB PO SCH (08:52)
[2022-05-22] MEDS ORDERED: LIDOCAINE 1% MDV 20ML VIAL As Ordered ONE (13:49)
[2022-05-22 14:00] VITALS: BP 146/68
[2022-05-22] MEDS: ENOXAPARIN 40MG/0.4ML SYRINGE (J1650 PER 10MG) SC SCH (16:05)
[2022-05-22] MEDS: SODIUM CHLORIDE 0.9% INJ 10 ML SYR IV SCH (17:40)
[2022-05-22] MEDS ORDERED: AMINO AC/ELECTROLYTE/DEX/CALC 2,566 ML IV SCH (18:00)
[2022-05-22] MEDS: TAMSULOSIN 0.4 MG CAP PO SCH (20:20)
[2022-05-22] MEDS: PRAVASTATIN 20 MG TAB PO SCH (20:20)
[2022-05-22] MEDS: oxyCODONE 5MG TAB PO PRN (20:28)
[2022-05-22 20:30] VITALS: O2SAT 93
[2022-05-22 20:36] VITALS: BP 162/71
[2022-05-22 21:30] VITALS: BP 146/71
[2022-05-23] MEDS: MOM 30ML SUSPENSION UDC PO SCH ×6 (00:45→20:24)
[2022-05-23] MEDS: ACETAMINOPHEN TAB 650MG DOSE (2X325MG) PO SCH ×4 (00:46→17:39)
[2022-05-23] MEDS: SODIUM CHLORIDE 0.9% INJ 10 ML SYR IV SCH ×2 (05:05→18:32)
[2022-05-23 05:42] VITALS: BP 155/73
[2022-05-23] MEDS: ADVAIR HFA 45/21MCG INHALER INH SCH ×2 (07:58→19:34)
[2022-05-23] MEDS: ALVIMOPAN 12 MG CAPSULE (ENTEREG) PO SCH ×2 (09:41→20:28)
[2022-05-23] MEDS: POTASSIUM CHLORIDE 10MEQ SR TABLET PO SCH (09:42)
[2022-05-23] MEDS: ENOXAPARIN 40MG/0.4ML SYRINGE (J1650 PER 10MG) SC SCH (09:43)
[2022-05-23] MEDS: FERROUS SULFATE 325MG TAB PO SCH ×2 (09:43→20:28)
[2022-05-23] MEDS: PANTOPRAZOLE 40MG VIAL IV SCH (09:43)
[2022-05-23] MEDS: VERAPAMIL 120MG SR TAB PO SCH (09:43)
[2022-05-23] MEDS: SODIUM CHLORIDE 0.9% INJ 10 ML SYR IV PRN (09:44)
[2022-05-23] MEDS ORDERED: GASTROGRAFIN SOLUTION 30ML (Q9963) As Ordered ONE (10:49)
[2022-05-23 14:20] VITALS: BP 150/70
[2022-05-23] MEDS ORDERED: AMINO AC/ELECTROLYTE/DEX/CALC 2,566 ML IV SCH (18:00)
[2022-05-23] MEDS: oxyCODONE 5MG TAB PO PRN (20:26)
[2022-05-23] MEDS: TAMSULOSIN 0.4 MG CAP PO SCH (20:27)
[2022-05-23] MEDS: PRAVASTATIN 20 MG TAB PO SCH (20:28)
[2022-05-23 22:00] VITALS: BP 149/70
[2022-05-23 22:57] VITALS: O2SAT 93
[2022-05-24] MEDS: ACETAMINOPHEN TAB 650MG DOSE (2X325MG) PO SCH ×4 (01:07→18:19)
[2022-05-24] MEDS: MOM 30ML SUSPENSION UDC PO SCH ×3 (01:15→09:28)
[2022-05-24 06:00] VITALS: BP 139/74
[2022-05-24] MEDS: SODIUM CHLORIDE 0.9% INJ 10 ML SYR IV SCH ×2 (06:11→18:20)
[2022-05-24 06:38] LABS: HEMATOCRIT 39.6 % (42.0-52.0); HEMOGLOBIN 11.6 g/dl (13.5-17.5); MEAN CORPUSCULAR HEMOGLOBIN 22.4 pg (27.0-33.0); MEAN CORPUSCULAR HGB CONC 29.3 g/dl (32.0-36.5); MEAN CORPUSCULAR VOLUME 76.3 fl (80.0-96.0); PLATELET COUNT, AUTOMATED 289 10^3/uL (150-450); RED BLOOD COUNT 5.19 10^6/uL (4.30-6.10); WHITE BLOOD COUNT 5.2 10^3/uL (4.0-10.0)
[2022-05-24 07:11] LABS: ANISOCYTOSIS 2+; BLOOD UREA NITROGEN 29 MG/DL (7-18); CARBON DIOXIDE LEVEL 36 MEQ/L (21-32); CHLORIDE LEVEL 96 MEQ/L (98-107); CREATININE FOR GFR 1.09 MG/DL (0.70-1.30); EOSINOPHILS 3 % (0-3); GLOMERULAR FILTRATION RATE > 60.0 (>42); GLUCOSE, FASTING 133 MG/DL (70-100); HYPOCHROMASIA 2+; LYMPHOCYTES 18 % (16-44); MONOCYTES 4 % (0-5); NEUTROPHILS 59 % (28-66); OVALOCYTES 1+; POIKILOCYTOSIS 2+; POTASSIUM SERUM 3.1 MEQ/L (3.5-5.1); SODIUM LEVEL 136 MEQ/L (136-145)
[2022-05-24 07:13] LABS: PLATELET ESTIMATE NORMAL (NORMAL)
[2022-05-24] MEDS: ADVAIR HFA 45/21MCG INHALER INH SCH ×2 (08:02→21:10)
[2022-05-24] MEDS: FERROUS SULFATE 325MG TAB PO SCH (09:00)
[2022-05-24 09:20] VITALS: BP 132/75
[2022-05-24] MEDS: POTASSIUM CHLORIDE 10MEQ SR TABLET PO SCH (09:27)
[2022-05-24] MEDS: VERAPAMIL 120MG SR TAB PO SCH (09:28)
[2022-05-24] MEDS: PANTOPRAZOLE 40MG VIAL IV SCH (09:28)
[2022-05-24] MEDS: ENOXAPARIN 40MG/0.4ML SYRINGE (J1650 PER 10MG) SC SCH (09:28)
[2022-05-24] MEDS: oxyCODONE 5MG TAB PO PRN ×2 (09:33→20:28)
[2022-05-24] MEDS ORDERED: KCL 10MEQ/100ML SWI (KRUN) 10 MEQ in IV 1 EA IV ONE (09:35)
[2022-05-24 14:00] VITALS: BP_SYST 132; BP_SYST 146; BP_DIAS 65; BP_DIAS 77
[2022-05-24] MEDS: INSULIN LISPRO (NovoLOG) PER UNIT SC SCH (18:00)
[2022-05-24] MEDS ORDERED: MULTIVITAMIN -ADULT INJECTION 10 ML, ZINC/COPPER/MANGANESE/SELENIUM 1 ML, POTASSIUM CHL... IV SCH ×4 (18:00)
[2022-05-24] MEDS: ONDANSETRON 4MG 2ML VIAL IV PRN (20:26)
[2022-05-24] MEDS: TAMSULOSIN 0.4 MG CAP PO SCH (20:29)
[2022-05-24] MEDS: PRAVASTATIN 20 MG TAB PO SCH (20:29)
[2022-05-24 20:46] VITALS: BP 145/77
[2022-05-25] MEDS: ACETAMINOPHEN TAB 650MG DOSE (2X325MG) PO SCH ×5 (00:34→23:48)
[2022-05-25] MEDS: oxyCODONE 5MG TAB PO PRN ×5 (05:14→20:55)
[2022-05-25 05:18] VITALS: BP 134/76
[2022-05-25] MEDS: INSULIN LISPRO (NovoLOG) PER UNIT SC SCH ×5 (05:21→23:49)
[2022-05-25] MEDS: SODIUM CHLORIDE 0.9% INJ 10 ML SYR IV SCH ×2 (05:21→17:40)
[2022-05-25] MEDS: ADVAIR HFA 45/21MCG INHALER INH SCH ×2 (07:40→20:00)
[2022-05-25] MEDS: SODIUM CHLORIDE 0.9% INJ 10 ML SYR IV PRN ×2 (09:53→11:42)
[2022-05-25] MEDS: PANTOPRAZOLE 40MG VIAL IV SCH (09:53)
[2022-05-25] MEDS: VERAPAMIL 120MG SR TAB PO SCH (09:54)
[2022-05-25] MEDS: ENOXAPARIN 40MG/0.4ML SYRINGE (J1650 PER 10MG) SC SCH (09:54)
[2022-05-25 10:13] LABS: HEMATOCRIT 38.8 % (42.0-52.0); HEMOGLOBIN 11.2 g/dl (13.5-17.5); MEAN CORPUSCULAR HEMOGLOBIN 22.2 pg (27.0-33.0); MEAN CORPUSCULAR HGB CONC 28.9 g/dl (32.0-36.5); PLATELET COUNT, AUTOMATED 313 10^3/uL (150-450); RED BLOOD COUNT 5.04 10^6/uL (4.30-6.10); WHITE BLOOD COUNT 6.2 10^3/uL (4.0-10.0)
[2022-05-25 10:40] LABS: ATYPICAL LYMPH 1 % (0-5); BASOPHILS 1 % (0-1); EOSINOPHILS 4 % (0-3); LYMPHOCYTES 11 % (16-44); MONOCYTES 9 % (0-5); NEUTROPHILS 64 % (28-66); PLASMA CELL 1 % (0-0)
[2022-05-25 10:43] LABS: PLATELET ESTIMATE NORMAL (NORMAL)
[2022-05-25 10:44] LABS: SCHISTOCYTES 2+
[2022-05-25 10:46] LABS: ANISOCYTOSIS 2+; HYPOCHROMASIA 2+; OVALOCYTES 1+; POIKILOCYTOSIS 1+
[2022-05-25] MEDS ORDERED: KCL 10MEQ/100ML SWI (KRUN) 10 MEQ in IV 1 EA IV ONE (10:50)
[2022-05-25 12:32] VITALS: O2SAT 91
[2022-05-25 14:00] VITALS: BP 134/70
[2022-05-25] MEDS ORDERED: AMINO AC IV SCH (18:00)
[2022-05-25] MEDS ORDERED: ELECTROLYTE IV SCH (18:00)
[2022-05-25] MEDS ORDERED: POTASSIUM CHLORIDE IV SCH (18:00)
[2022-05-25] MEDS ORDERED: CALC IV SCH (18:00)
[2022-05-25] MEDS ORDERED: DEX IV SCH (18:00)
[2022-05-25 20:03] VITALS: BP 133/71
[2022-05-25] MEDS: TAMSULOSIN 0.4 MG CAP PO SCH (20:54)
[2022-05-25] MEDS: PRAVASTATIN 20 MG TAB PO SCH (20:54)
[2022-05-26] VITALS (9 sets, daily range): BP systolic 98–135; BP diastolic 59–73
[2022-05-26] MEDS: ACETAMINOPHEN TAB 650MG DOSE (2X325MG) PO SCH ×5 (01:17→23:50)
[2022-05-26] MEDS: SODIUM CHLORIDE 0.9% INJ 10 ML SYR IV SCH ×2 (05:17→18:32)
[2022-05-26] MEDS: INSULIN LISPRO (NovoLOG) PER UNIT SC SCH ×4 (05:17→23:50)
[2022-05-26] MEDS ORDERED: fentaNYL 100 MCG/2 ML INJECTION As Ordered ONE (07:21)
[2022-05-26] MEDS ORDERED: MIDAZOLAM INJ 2MG/2ML VIAL (J2250 PER 1MG) As Ordered ONE (07:21)
[2022-05-26] MEDS ORDERED: HYDROmorphone HCL 2MG/ML 1ML VIAL As Ordered ONE (07:21)
[2022-05-26] MEDS ORDERED: KETOROLAC 60MG 2ML VIAL As Ordered ONE (07:22)
[2022-05-26] MEDS ORDERED: propofoL 200 MG/20 ML VIAL As Ordered ONE (07:22)
[2022-05-26] MEDS ORDERED: ROCURONIUM BROMIDE 50 MG/5 ML VIAL As Ordered ONE (07:22)
[2022-05-26] MEDS ORDERED: ONDANSETRON 4MG 2ML VIAL As Ordered ONE (07:22)
[2022-05-26] MEDS ORDERED: dexameTHASONE 4 MG/ML 1ML VIAL (J1100 PER 1MG) As Ordered ONE (07:22)
[2022-05-26] MEDS ORDERED: LIDOCAINE 2% INJ 100 MG/5 ML SYRINGE As Ordered ONE (07:22)
[2022-05-26 07:26] LABS: ALBUMIN 2.7 GM/DL (3.2-5.2); ALT/SGPT 12 U/L (12-78); BILIRUBIN,TOTAL 0.4 MG/DL (0.2-1.0); BLOOD UREA NITROGEN 49 MG/DL (7-18); CALCIUM LEVEL 8.6 MG/DL (8.8-10.2); CARBON DIOXIDE LEVEL 34 MEQ/L (21-32); CHLORIDE LEVEL 92 MEQ/L (98-107); CREATININE FOR GFR 1.23 MG/DL (0.70-1.30); GLOMERULAR FILTRATION RATE > 60.0 (>42); GLUCOSE, FASTING 120 MG/DL (70-100); POTASSIUM SERUM 3.8 MEQ/L (3.5-5.1); SODIUM LEVEL 131 MEQ/L (136-145); TOTAL PROTEIN 6.2 GM/DL (6.4-8.2)
[2022-05-26] MEDS ORDERED: ACETAMINOPHEN 1000MG 100ML IV BTL (OFIRMEV) (J0131 PER 10MG) As Ordered ONE (07:29)
[2022-05-26] MEDS ORDERED: SUGAMMADEX SODIUM 500 MG/5 ML VIAL (BRIDION) As Ordered ONE (07:34)
[2022-05-26] MEDS: ADVAIR HFA 45/21MCG INHALER INH SCH ×2 (07:38→19:24)
[2022-05-26] MEDS ORDERED: ZOSYN 3.375GM VIAL As Ordered ONE (07:56)
[2022-05-26] MEDS: PANTOPRAZOLE 40MG VIAL IV SCH (08:08)
[2022-05-26] MEDS: VERAPAMIL 120MG SR TAB PO SCH (08:09)
[2022-05-26] MEDS ORDERED: BUPIVACAINE HCL 0.25% 10ML VIAL As Ordered ONE (08:12)
[2022-05-26] MEDS ORDERED: BUPIVACAINE LIPOSOME/PF 1.3% 20ML VIAL (13.3MG/ML)(EXPAREL) As Ordered ONE (08:12)
[2022-05-26] MEDS ORDERED: ETOMIDATE INJ 20MG/10ML VIAL As Ordered ONE (08:56)
[2022-05-26] MEDS ORDERED: PHENYLephrine 500MCG 5ML (100MCG/ML) SYRINGE As Ordered ONE (09:41)
[2022-05-26] MEDS ORDERED: PHENYLEPHRINE 10MG/ML 1ML VIAL (J2370 PER 1) As Ordered ONE (09:44)
[2022-05-26] MEDS ORDERED: VASOPRESSIN INJ 20 UNITS/ML VIAL As Ordered ONE (10:08)
[2022-05-26] MEDS: ENOXAPARIN 40MG/0.4ML SYRINGE (J1650 PER 10MG) SC SCH (10:17)
[2022-05-26] MEDS ORDERED: MORPHINE 2 MG/ML 1ML VIAL IV PRN (11:10)
[2022-05-26] MEDS ORDERED: fentaNYL 100 MCG/2 ML INJECTION IV PRN (11:10)
[2022-05-26] MEDS ORDERED: ONDANSETRON 4MG 2ML VIAL IV PRN (11:10)
[2022-05-26] MEDS ORDERED: LR 1,000 ML IV SCH (11:10)
[2022-05-26] MEDS ORDERED: AMINO AC/ELECTROLYTE/DEX/CALC 2,566 ML IV SCH (18:00)
[2022-05-26] MEDS: KETOROLAC 30 MG/ML 1ML VIAL IV SCH (18:30)
[2022-05-26] MEDS: TAMSULOSIN 0.4 MG CAP PO SCH (20:15)
[2022-05-26] MEDS: PRAVASTATIN 20 MG TAB PO SCH (20:15)
[2022-05-27] VITALS (7 sets, daily range): BP systolic 98–118; BP diastolic 53–63
[2022-05-27] MEDS: KETOROLAC 30 MG/ML 1ML VIAL IV SCH ×2 (01:52→09:17)
[2022-05-27] MEDS: SODIUM CHLORIDE 0.9% INJ 10 ML SYR IV SCH ×2 (05:16→18:37)
[2022-05-27] MEDS: ACETAMINOPHEN TAB 650MG DOSE (2X325MG) PO SCH ×3 (05:18→18:33)
[2022-05-27] MEDS: oxyCODONE 5MG TAB PO PRN ×2 (05:20→18:36)
[2022-05-27] MEDS: INSULIN LISPRO (NovoLOG) PER UNIT SC SCH ×3 (05:51→18:35)
[2022-05-27] MEDS: ADVAIR HFA 45/21MCG INHALER INH SCH ×2 (07:58→21:26)
[2022-05-27] MEDS ORDERED: NS 1,000 ML IV ONE (08:15)
[2022-05-27 08:47] LABS: HEMATOCRIT 38.7 % (42.0-52.0); HEMOGLOBIN 11.7 g/dl (13.5-17.5); MEAN CORPUSCULAR HEMOGLOBIN 22.7 pg (27.0-33.0); MEAN CORPUSCULAR HGB CONC 30.2 g/dl (32.0-36.5); MEAN CORPUSCULAR VOLUME 75.1 fl (80.0-96.0); PLATELET COUNT, AUTOMATED 340 10^3/uL (150-450); RED BLOOD COUNT 5.15 10^6/uL (4.30-6.10); WHITE BLOOD COUNT 10.1 10^3/uL (4.0-10.0)
[2022-05-27] MEDS: PANTOPRAZOLE 40MG VIAL IV SCH (09:16)
[2022-05-27] MEDS: ENOXAPARIN 40MG/0.4ML SYRINGE (J1650 PER 10MG) SC SCH (09:17)
[2022-05-27 09:28] LABS: CALCIUM LEVEL 8.4 MG/DL (8.8-10.2); CREATININE FOR GFR 1.76 MG/DL (0.70-1.30); GLOMERULAR FILTRATION RATE 40.8 (>42); POTASSIUM SERUM 4.5 MEQ/L (3.5-5.1)
[2022-05-27 10:23] LABS: ATYPICAL LYMPH 1 % (0-5); BASOPHILS 1 % (0-1); LYMPHOCYTES 9 % (16-44); MONOCYTES 3 % (0-5); NEUTROPHILS 74 % (28-66); PLATELET ESTIMATE NORMAL (NORMAL)
[2022-05-27 10:24] LABS: ANISOCYTOSIS 1+; HYPOCHROMASIA 1+; OVALOCYTES 1+; POIKILOCYTOSIS 1+
[2022-05-27 10:25] LABS: TOXIC GRANULATION 1+
[2022-05-27] MEDS: VERAPAMIL 120MG SR TAB PO SCH (10:37)
[2022-05-27] MEDS: LR 1,000 ML IV SCH ×2 (11:24→20:52)
[2022-05-27 14:49] LABS: CALCIUM LEVEL 8.4 MG/DL (8.8-10.2); CREATININE FOR GFR 1.69 MG/DL (0.70-1.30); GLOMERULAR FILTRATION RATE 42.8 (>42); POTASSIUM SERUM 3.9 MEQ/L (3.5-5.1)
[2022-05-27] MEDS ORDERED: MULTIVITAMIN -ADULT INJECTION 10 ML, ZINC/COPPER/MANGANESE/SELENIUM 1 ML in AMINO AC/EL... IV SCH (18:00)
[2022-05-27] MEDS: TAMSULOSIN 0.4 MG CAP PO SCH (20:51)
[2022-05-27] MEDS: PRAVASTATIN 20 MG TAB PO SCH (20:52)
[2022-05-27] MEDS: SODIUM CHLORIDE 0.9% INJ 10 ML SYR IV PRN (20:55)
[2022-05-28] MEDS: INSULIN LISPRO (NovoLOG) PER UNIT SC SCH ×3 (00:18→12:00)
[2022-05-28] MEDS: oxyCODONE 5MG TAB PO PRN ×3 (00:38→20:38)
[2022-05-28 06:00] VITALS: BP 135/67
[2022-05-28] MEDS: SODIUM CHLORIDE 0.9% INJ 10 ML SYR IV SCH ×2 (06:00→16:40)
[2022-05-28] MEDS: ACETAMINOPHEN TAB 650MG DOSE (2X325MG) PO SCH ×4 (06:00→18:27)
[2022-05-28] MEDS: LR 1,000 ML IV SCH (06:44)
[2022-05-28 06:59] LABS: HEMATOCRIT 31.8 % (42.0-52.0); MEAN CORPUSCULAR HGB CONC 30.5 g/dl (32.0-36.5); MEAN CORPUSCULAR VOLUME 75.5 fl (80.0-96.0); PLATELET COUNT, AUTOMATED 344 10^3/uL (150-450); RED BLOOD COUNT 4.21 10^6/uL (4.30-6.10); WHITE BLOOD COUNT 9.4 10^3/uL (4.0-10.0)
[2022-05-28 07:01] LABS: HEMOGLOBIN 9.7 g/dl (13.5-17.5)
[2022-05-28] MEDS: ADVAIR HFA 45/21MCG INHALER INH SCH ×2 (07:26→20:49)
[2022-05-28 07:33] LABS: BLOOD UREA NITROGEN 49 MG/DL (7-18); CALCIUM LEVEL 8.2 MG/DL (8.8-10.2); CARBON DIOXIDE LEVEL 28 MEQ/L (21-32); CHLORIDE LEVEL 94 MEQ/L (98-107); CREATININE FOR GFR 1.17 MG/DL (0.70-1.30); GLOMERULAR FILTRATION RATE > 60.0 (>42); GLUCOSE, FASTING 113 MG/DL (70-100); POTASSIUM SERUM 4.1 MEQ/L (3.5-5.1); SODIUM LEVEL 129 MEQ/L (136-145)
[2022-05-28 07:40] LABS: ANISOCYTOSIS 2+; EOSINOPHILS 1 % (0-3); HYPOCHROMASIA 2+; LYMPHOCYTES 7 % (16-44); MONOCYTES 3 % (0-5); NEUTROPHILS 87 % (28-66)
[2022-05-28 07:41] LABS: PLATELET ESTIMATE NORMAL (NORMAL)
[2022-05-28] MEDS: ENOXAPARIN 40MG/0.4ML SYRINGE (J1650 PER 10MG) SC SCH (08:51)
[2022-05-28] MEDS: VERAPAMIL 120MG SR TAB PO SCH (08:51)
[2022-05-28] MEDS: PANTOPRAZOLE 40MG VIAL IV SCH (08:51)
[2022-05-28 10:00] VITALS: BP 132/66
[2022-05-28] MEDS: FUROSEMIDE 20MG/2ML VIAL (J1940) IV SCH (12:54)
[2022-05-28 14:00] VITALS: BP 136/66
[2022-05-28 18:00] VITALS: BP 123/68
[2022-05-28] MEDS ORDERED: AMINO AC/ELECTROLYTE/DEX/CALC 2,566 ML IV SCH (18:00)
[2022-05-28] MEDS: TAMSULOSIN 0.4 MG CAP PO SCH (20:37)
[2022-05-28] MEDS: PRAVASTATIN 20 MG TAB PO SCH (20:37)
[2022-05-28 22:00] VITALS: BP 123/67
[2022-05-29] MEDS: ACETAMINOPHEN TAB 650MG DOSE (2X325MG) PO SCH ×5 (00:42→23:25)
[2022-05-29 02:00] VITALS: BP 121/65
[2022-05-29 05:15] VITALS: O2SAT 91
[2022-05-29 05:21] VITALS: BP 151/71
[2022-05-29] MEDS: SODIUM CHLORIDE 0.9% INJ 10 ML SYR IV SCH ×2 (06:11→18:19)
[2022-05-29] MEDS: ADVAIR HFA 45/21MCG INHALER INH SCH ×2 (07:35→21:00)
[2022-05-29 08:12] LABS: BASO % 0.3 % (0.0-1.0); EOS # 0.4 10^3/uL (0.0-0.5); EOS % 3.5 % (0.0-3.0); HEMATOCRIT 32.7 % (42.0-52.0); HEMOGLOBIN 9.8 g/dl (13.5-17.5); LYMPH # 0.6 10^3/uL (1.5-5.0); MEAN CORPUSCULAR HEMOGLOBIN 22.8 pg (27.0-33.0); MONO # 0.8 10^3/uL (0.0-0.8); MONO % 7.9 % (2.0-8.0); NEUTROPHILS # 8.5 10^3/uL (1.5-8.5); PLATELET COUNT, AUTOMATED 370 10^3/uL (150-450); WHITE BLOOD COUNT 10.5 10^3/uL (4.0-10.0)
[2022-05-29 08:39] LABS: ANISOCYTOSIS 4+; HYPOCHROMASIA 1+; MICROCYTOSIS 1+; OVALOCYTES 2+
[2022-05-29 08:42] LABS: PLATELET ESTIMATE NORMAL (NORMAL)
[2022-05-29] MEDS: VERAPAMIL 120MG SR TAB PO SCH (09:00)
[2022-05-29 09:06] LABS: BLOOD UREA NITROGEN 34 MG/DL (7-18); CALCIUM LEVEL 8.4 MG/DL (8.8-10.2); CARBON DIOXIDE LEVEL 31 MEQ/L (21-32); CHLORIDE LEVEL 95 MEQ/L (98-107); GLOMERULAR FILTRATION RATE > 60.0 (>42); GLUCOSE, FASTING 94 MG/DL (70-100); POTASSIUM SERUM 4.1 MEQ/L (3.5-5.1); SODIUM LEVEL 133 MEQ/L (136-145)
[2022-05-29] MEDS: FUROSEMIDE 20MG/2ML VIAL (J1940) IV SCH (09:46)
[2022-05-29] MEDS: PANTOPRAZOLE 40MG VIAL IV SCH (09:46)
[2022-05-29] MEDS: ENOXAPARIN 40MG/0.4ML SYRINGE (J1650 PER 10MG) SC SCH (09:46)
[2022-05-29] MEDS: oxyCODONE 5MG TAB PO PRN (10:50)
[2022-05-29 14:00] VITALS: BP 132/76
[2022-05-29] MEDS ORDERED: AMINO AC/ELECTROLYTE/DEX/CALC 2,566 ML IV SCH (18:00)
[2022-05-29 20:00] VITALS: BP 134/75; O2SAT 92
[2022-05-29] MEDS: PRAVASTATIN 20 MG TAB PO SCH (20:32)
[2022-05-29] MEDS: TAMSULOSIN 0.4 MG CAP PO SCH (20:32)
[2022-05-29 23:12] VITALS: BP 122/95
[2022-05-29] MEDS: SODIUM CHLORIDE 0.9% INJ 10 ML SYR IV PRN (23:25)
[2022-05-29] MEDS: ONDANSETRON 4MG 2ML VIAL IV PRN (23:25)
[2022-05-30] VITALS (9 sets, daily range): BP systolic 92–120; BP diastolic 56–62
[2022-05-30] MEDS: PIPERACILLIN/TAZOBACTAM SOD 3.375 GM in D5W MINI-BAG PLUS 50 ML IV SCH ×4 (03:38→21:07)
[2022-05-30] MEDS: SODIUM CHLORIDE 0.9% INJ 10 ML SYR IV PRN ×2 (03:39→06:16)
[2022-05-30] MEDS ORDERED: KETOROLAC 30 MG/ML 1ML VIAL IV ONE (04:00)
[2022-05-30] MEDS: ACETAMINOPHEN TAB 650MG DOSE (2X325MG) PO PRN (04:03)
[2022-05-30] MEDS: SODIUM CHLORIDE 0.9% INJ 10 ML SYR IV SCH (06:00)
[2022-05-30] MEDS ORDERED: NS 1,000 ML IV ONE (06:10)
[2022-05-30 06:36] LABS: HEMATOCRIT 33.9 % (42.0-52.0); MEAN CORPUSCULAR HEMOGLOBIN 22.3 pg (27.0-33.0); MEAN CORPUSCULAR HGB CONC 29.5 g/dl (32.0-36.5); MEAN CORPUSCULAR VOLUME 75.5 fl (80.0-96.0); PLATELET COUNT, AUTOMATED 406 10^3/uL (150-450); RED BLOOD COUNT 4.49 10^6/uL (4.30-6.10); WHITE BLOOD COUNT 29.1 10^3/uL (4.0-10.0)
[2022-05-30 07:30] LABS: C REACTIVE PROTEIN QUANTITATIV 23.6 MG/DL (0.00-0.30); CALCIUM LEVEL 8.1 MG/DL (8.8-10.2); CREATININE FOR GFR 1.88 MG/DL (0.70-1.30); GLOMERULAR FILTRATION RATE 37.8 (>42); POTASSIUM SERUM 3.6 MEQ/L (3.5-5.1)
[2022-05-30] MEDS: GASTROGRAFIN SOLUTION 30ML PO SCH ×2 (07:51→08:33)
[2022-05-30 07:57] LABS: ANISOCYTOSIS 1+; HYPOCHROMASIA 1+; LYMPHOCYTES 5 % (16-44); MICROCYTOSIS 1+; NEUTROPHILS 86 % (28-66); PLATELET ESTIMATE NORMAL (NORMAL); POIKILOCYTOSIS 1+; TOXIC GRANULATION 1+
[2022-05-30] MEDS: ADVAIR HFA 45/21MCG INHALER INH SCH ×2 (08:08→19:57)
[2022-05-30] MEDS: PANTOPRAZOLE 40MG VIAL IV SCH (08:33)
[2022-05-30] MEDS: ENOXAPARIN 40MG/0.4ML SYRINGE (J1650 PER 10MG) SC SCH ×2 (08:35→12:46)
[2022-05-30] MEDS: VERAPAMIL 120MG SR TAB PO SCH (09:00)
[2022-05-30] MEDS ORDERED: ISOVUE-370 76% 100ML VIAL As Ordered ONE (10:00)
[2022-05-30] MEDS ORDERED: VANCOMYCIN HCL 1,000 MG in IV FLUID PLACE HOLDER 1 EA IV SCH (10:40)
[2022-05-30] MEDS: LR 1,000 ML IV SCH ×2 (10:58→21:06)
[2022-05-30] MEDS ORDERED: VANCOMYCIN HCL 1,000 MG, VIAL MATE ADAPTER 1 EACH in D5W 250 ML IV ONE (12:00)
[2022-05-30] MEDS ORDERED: VANCOMYCIN HCL 750 MG, VIAL MATE ADAPTER 1 EACH in D5W 250 ML IV ONE (13:00)
[2022-05-30] MEDS: oxyCODONE 5MG TAB PO PRN (14:27)
[2022-05-30] MEDS: TAMSULOSIN 0.4 MG CAP PO SCH (21:07)
[2022-05-30] MEDS: PRAVASTATIN 20 MG TAB PO SCH (21:07)
[2022-05-31] VITALS (12 sets, daily range): BP systolic 115–122; BP diastolic 52–57; O2SAT 90–95
[2022-05-31] MEDS ORDERED: VANCOMYCIN HCL 500 MG in D5W MINI-BAG PLUS 100 ML IV SCH ×2
[2022-05-31] MEDS: PIPERACILLIN/TAZOBACTAM SOD 3.375 GM in D5W MINI-BAG PLUS 50 ML IV SCH ×4 (03:05→20:30)
[2022-05-31] MEDS: LR 1,000 ML IV SCH (05:35)
[2022-05-31] MEDS ORDERED: NS 1,000 ML IV ONE (06:15)
[2022-05-31 07:04] LABS: BASO % 0.2 % (0.0-1.0); EOS # 0.1 10^3/uL (0.0-0.5); EOS % 0.6 % (0.0-3.0); HEMATOCRIT 30.4 % (42.0-52.0); HEMOGLOBIN 8.8 g/dl (13.5-17.5); LYMPH # 0.8 10^3/uL (1.5-5.0); LYMPH % 3.5 % (24.0-44.0); MEAN CORPUSCULAR HEMOGLOBIN 21.9 pg (27.0-33.0); MEAN CORPUSCULAR HGB CONC 28.9 g/dl (32.0-36.5); MEAN CORPUSCULAR VOLUME 75.6 fl (80.0-96.0); MONO # 0.6 10^3/uL (0.0-0.8); MONO % 2.4 % (2.0-8.0); NEUTROPHILS # 21.9 10^3/uL (1.5-8.5); NEUTROPHILS % 91.9 % (36.0-66.0); PLATELET COUNT, AUTOMATED 357 10^3/uL (150-450); RED BLOOD COUNT 4.02 10^6/uL (4.30-6.10); WHITE BLOOD COUNT 23.9 10^3/uL (4.0-10.0)
[2022-05-31 07:39] LABS: BLOOD UREA NITROGEN 31 MG/DL (7-18); CARBON DIOXIDE LEVEL 29 MEQ/L (21-32); CHLORIDE LEVEL 94 MEQ/L (98-107); CREATININE FOR GFR 1.16 MG/DL (0.70-1.30); GLOMERULAR FILTRATION RATE > 60.0 (>42); GLUCOSE, FASTING 60 MG/DL (70-100); POTASSIUM SERUM 3.3 MEQ/L (3.5-5.1); SODIUM LEVEL 132 MEQ/L (136-145)
[2022-05-31] MEDS ORDERED: DEXTROSE 50% 50 ML SYRINGE IV STA (07:46)
[2022-05-31] MEDS: ADVAIR HFA 45/21MCG INHALER INH SCH ×2 (08:01→19:58)
[2022-05-31 08:18] LABS: ANISOCYTOSIS 1+; HYPOCHROMASIA 1+
[2022-05-31 08:19] LABS: MICROCYTOSIS 2+; PLATELET ESTIMATE NORMAL (NORMAL)
[2022-05-31 08:20] LABS: OVALOCYTES 1+; POIKILOCYTOSIS 1+
[2022-05-31] MEDS: PANTOPRAZOLE 40MG VIAL IV SCH (08:27)
[2022-05-31] MEDS: ENOXAPARIN 40MG/0.4ML SYRINGE (J1650 PER 10MG) SC SCH (08:27)
[2022-05-31] MEDS: KCL 20MEQ IN D5/0.45NS 1000ML 1,000 ML IV SCH ×3 (08:30→20:35)
[2022-05-31] MEDS: VERAPAMIL 120MG SR TAB PO SCH (09:00)
[2022-05-31] MEDS: VANCOMYCIN HCL 750 MG, VIAL MATE ADAPTER 1 EACH in D5W 250 ML IV SCH (13:44)
[2022-05-31] MEDS: DEXTROSE 50% 50 ML SYRINGE IV PRN (19:04)
[2022-05-31] MEDS: PRAVASTATIN 20 MG TAB PO SCH (20:29)
[2022-05-31] MEDS: TAMSULOSIN 0.4 MG CAP PO SCH (20:29)
[2022-05-31] MEDS: oxyCODONE 5MG TAB PO PRN (20:36)
[2022-06-01] VITALS (10 sets, daily range): BP systolic 115–127; BP diastolic 57–61; O2SAT 92–95
[2022-06-01] MEDS: VANCOMYCIN HCL 750 MG, VIAL MATE ADAPTER 1 EACH in D5W 250 ML IV SCH ×2 (00:15→13:15)
[2022-06-01] MEDS: PIPERACILLIN/TAZOBACTAM SOD 3.375 GM in D5W MINI-BAG PLUS 50 ML IV SCH ×4 (02:28→19:55)
[2022-06-01 06:58] LABS: BASO % 0.2 % (0.0-1.0); EOS # 0.3 10^3/uL (0.0-0.5); EOS % 1.6 % (0.0-3.0); HEMATOCRIT 30.4 % (42.0-52.0); HEMOGLOBIN 8.6 g/dl (13.5-17.5); LYMPH % 5.9 % (24.0-44.0); MEAN CORPUSCULAR HEMOGLOBIN 22.1 pg (27.0-33.0); MEAN CORPUSCULAR HGB CONC 28.3 g/dl (32.0-36.5); MEAN CORPUSCULAR VOLUME 78.1 fl (80.0-96.0); MONO # 0.6 10^3/uL (0.0-0.8); MONO % 3.5 % (2.0-8.0); NEUTROPHILS # 14.3 10^3/uL (1.5-8.5); NEUTROPHILS % 87.5 % (36.0-66.0); PLATELET COUNT, AUTOMATED 364 10^3/uL (150-450); RED BLOOD COUNT 3.89 10^6/uL (4.30-6.10); WHITE BLOOD COUNT 16.4 10^3/uL (4.0-10.0)
[2022-06-01] MEDS: ADVAIR HFA 45/21MCG INHALER INH SCH ×2 (07:20→20:00)
[2022-06-01 07:32] LABS: BLOOD UREA NITROGEN 17 MG/DL (7-18); CALCIUM LEVEL 7.5 MG/DL (8.8-10.2); CARBON DIOXIDE LEVEL 28 MEQ/L (21-32); CHLORIDE LEVEL 99 MEQ/L (98-107); CREATININE FOR GFR 0.91 MG/DL (0.70-1.30); GLOMERULAR FILTRATION RATE > 60.0 (>42); GLUCOSE, FASTING 80 MG/DL (70-100); POTASSIUM SERUM 3.7 MEQ/L (3.5-5.1); SODIUM LEVEL 133 MEQ/L (136-145)
[2022-06-01 07:33] LABS: ANISOCYTOSIS 4+; HYPOCHROMASIA 2+
[2022-06-01 07:34] LABS: MICROCYTOSIS 1+; OVALOCYTES 2+
[2022-06-01 07:43] LABS: PLATELET ESTIMATE NORMAL (NORMAL)
[2022-06-01] MEDS: VERAPAMIL 120MG SR TAB PO SCH (08:17)
[2022-06-01] MEDS: PANTOPRAZOLE 40MG VIAL IV SCH (08:18)
[2022-06-01] MEDS: ENOXAPARIN 40MG/0.4ML SYRINGE (J1650 PER 10MG) SC SCH (08:18)
[2022-06-01] MEDS: KCL 20MEQ IN D5/0.45NS 1000ML 1,000 ML IV SCH ×2 (08:19→17:54)
[2022-06-01] MEDS: DEXTROSE 50% 50 ML SYRINGE IV PRN ×2 (09:32→18:28)
[2022-06-01] MEDS: oxyCODONE 5MG TAB PO PRN ×2 (09:38→18:36)
[2022-06-01] MEDS: ACETAMINOPHEN TAB 650MG DOSE (2X325MG) PO PRN (16:12)
[2022-06-01] MEDS: TAMSULOSIN 0.4 MG CAP PO SCH (19:55)
[2022-06-01] MEDS: PRAVASTATIN 20 MG TAB PO SCH (19:55)
[2022-06-02] VITALS: BP 122/58
[2022-06-02] MEDS: DEXTROSE 50% 50 ML SYRINGE IV PRN ×3 (00:12→22:11)
[2022-06-02] MEDS: VANCOMYCIN HCL 750 MG, VIAL MATE ADAPTER 1 EACH in D5W 250 ML IV SCH ×2 (00:12→12:35)
[2022-06-02] MEDS: PIPERACILLIN/TAZOBACTAM SOD 3.375 GM in D5W MINI-BAG PLUS 50 ML IV SCH ×4 (02:12→21:50)
[2022-06-02] MEDS: KCL 20MEQ IN D5/0.45NS 1000ML 1,000 ML IV SCH (02:14)
[2022-06-02 05:03] VITALS: BP 127/63
[2022-06-02] MEDS: ADVAIR HFA 45/21MCG INHALER INH SCH ×2 (07:50→20:15)
[2022-06-02] MEDS: PANTOPRAZOLE 40MG VIAL IV SCH (07:56)
[2022-06-02] MEDS: ENOXAPARIN 40MG/0.4ML SYRINGE (J1650 PER 10MG) SC SCH (07:56)
[2022-06-02] MEDS: VERAPAMIL 120MG SR TAB PO SCH (07:57)
[2022-06-02] MEDS: oxyCODONE 5MG TAB PO PRN ×2 (08:00→20:13)
[2022-06-02 08:34] LABS: BASO % 0.2 % (0.0-1.0); EOS # 0.4 10^3/uL (0.0-0.5); EOS % 2.6 % (0.0-3.0); HEMOGLOBIN 9.3 g/dl (13.5-17.5); LYMPH # 0.9 10^3/uL (1.5-5.0); LYMPH % 6.4 % (24.0-44.0); MEAN CORPUSCULAR HEMOGLOBIN 22.6 pg (27.0-33.0); MEAN CORPUSCULAR HGB CONC 29.1 g/dl (32.0-36.5); MEAN CORPUSCULAR VOLUME 77.7 fl (80.0-96.0); MONO # 0.5 10^3/uL (0.0-0.8); MONO % 3.4 % (2.0-8.0); NEUTROPHILS # 11.4 10^3/uL (1.5-8.5); NEUTROPHILS % 85.5 % (36.0-66.0); PLATELET COUNT, AUTOMATED 432 10^3/uL (150-450); RED BLOOD COUNT 4.12 10^6/uL (4.30-6.10); WHITE BLOOD COUNT 13.4 10^3/uL (4.0-10.0)
[2022-06-02 08:59] LABS: BLOOD UREA NITROGEN 9 MG/DL (7-18); CALCIUM LEVEL 8.1 MG/DL (8.8-10.2); CARBON DIOXIDE LEVEL 24 MEQ/L (21-32); CHLORIDE LEVEL 99 MEQ/L (98-107); GLOMERULAR FILTRATION RATE > 60.0 (>42); GLUCOSE, FASTING 127 MG/DL (70-100); POTASSIUM SERUM 3.5 MEQ/L (3.5-5.1); SODIUM LEVEL 129 MEQ/L (136-145)
[2022-06-02 09:04] LABS: ANISOCYTOSIS 4+; HYPOCHROMASIA 1+; POIKILOCYTOSIS 1+
[2022-06-02 09:06] LABS: MICROCYTOSIS 1+; OVALOCYTES 1+
[2022-06-02 09:08] LABS: POLYCHROMASIA 1+; SCHISTOCYTES 1+; TEAR DROP CELLS 1+
[2022-06-02 09:09] LABS: PLATELET CLUMPS SMALL AMT; PLATELET ESTIMATE INCREASED (NORMAL)
[2022-06-02 10:00] VITALS: BP 122/63
[2022-06-02] MEDS: KCL 20MEQ IN D5/NS 1000ML 1,000 ML IV SCH (13:41)
[2022-06-02 14:00] VITALS: BP 109/62
[2022-06-02] MEDS ORDERED: VANCOMYCIN HCL 500 MG in D5W MINI-BAG PLUS 100 ML IV ONE (14:00)
[2022-06-02] MEDS: ACETAMINOPHEN TAB 650MG DOSE (2X325MG) PO PRN (15:53)
[2022-06-02] MEDS: TAMSULOSIN 0.4 MG CAP PO SCH (20:11)
[2022-06-02 22:00] VITALS: BP 113/60
[2022-06-03] MEDS ORDERED: VANCOMYCIN HCL 750 MG, VIAL MATE ADAPTER 1 EACH in D5W 250 ML IV ONE (01:00)
[2022-06-03] MEDS ORDERED: VANCOMYCIN HCL 1,000 MG, VIAL MATE ADAPTER 1 EACH in D5W 250 ML IV SCH (01:00)
[2022-06-03] MEDS: KCL 20MEQ IN D5/NS 1000ML 1,000 ML IV SCH ×2 (01:15→14:25)
[2022-06-03] MEDS ORDERED: VANCOMYCIN HCL 500 MG in D5W MINI-BAG PLUS 100 ML IV ONE (02:00)
[2022-06-03] MEDS: PIPERACILLIN/TAZOBACTAM SOD 3.375 GM in D5W MINI-BAG PLUS 50 ML IV SCH ×4 (02:56→23:06)
[2022-06-03 05:27] VITALS: BP 124/59
[2022-06-03 06:20] LABS: BASO # 0.1 10^3/uL (0.0-0.2); BASO % 0.4 % (0.0-1.0); EOS # 0.2 10^3/uL (0.0-0.5); EOS % 1.9 % (0.0-3.0); HEMATOCRIT 31.8 % (42.0-52.0); HEMOGLOBIN 9.4 g/dl (13.5-17.5); MEAN CORPUSCULAR HEMOGLOBIN 22.8 pg (27.0-33.0); MEAN CORPUSCULAR HGB CONC 29.6 g/dl (32.0-36.5); MEAN CORPUSCULAR VOLUME 77.2 fl (80.0-96.0); MONO # 0.4 10^3/uL (0.0-0.8); MONO % 3.6 % (2.0-8.0); NEUTROPHILS # 10.3 10^3/uL (1.5-8.5); NEUTROPHILS % 83.9 % (36.0-66.0); PLATELET COUNT, AUTOMATED 504 10^3/uL (150-450); RED BLOOD COUNT 4.12 10^6/uL (4.30-6.10); WHITE BLOOD COUNT 12.3 10^3/uL (4.0-10.0)
[2022-06-03 06:46] LABS: BLOOD UREA NITROGEN 7 MG/DL (7-18); CARBON DIOXIDE LEVEL 25 MEQ/L (21-32); CHLORIDE LEVEL 99 MEQ/L (98-107); CREATININE FOR GFR 0.77 MG/DL (0.70-1.30); GLOMERULAR FILTRATION RATE > 60.0 (>42); GLUCOSE, FASTING 75 MG/DL (70-100); SODIUM LEVEL 132 MEQ/L (136-145)
[2022-06-03 06:47] LABS: C REACTIVE PROTEIN QUANTITATIV 7.77 MG/DL (0.00-0.30)
[2022-06-03] MEDS: ADVAIR HFA 45/21MCG INHALER INH SCH ×2 (07:29→20:00)
[2022-06-03] MEDS: PANTOPRAZOLE 40MG VIAL IV SCH (08:29)
[2022-06-03] MEDS: VERAPAMIL 120MG SR TAB PO SCH (08:29)
[2022-06-03] MEDS: ENOXAPARIN 40MG/0.4ML SYRINGE (J1650 PER 10MG) SC SCH (08:31)
[2022-06-03] MEDS ORDERED: VANCOMYCIN HCL 750 MG, VIAL MATE ADAPTER 1 EACH in D5W 250 ML IV SCH (13:00)
[2022-06-03] MEDS ORDERED: LIDOCAINE 1% MDV 20ML VIAL As Ordered ONE (13:03)
[2022-06-03 14:00] VITALS: BP 126/72
[2022-06-03] MEDS ORDERED: VANCOMYCIN HCL 500 MG in D5W MINI-BAG PLUS 100 ML IV SCH (14:00)
[2022-06-03] MEDS: VANCOMYCIN HCL 1,000 MG, VIAL MATE ADAPTER 1 EACH in D5W 250 ML IV SCH (16:03)
[2022-06-03] MEDS: SODIUM CHLORIDE 0.9% INJ 10 ML SYR IV SCH (17:29)
[2022-06-03] MEDS ORDERED: AMINO AC/ELECTROLYTE/DEX/CALC 2,566 ML IV SCH (18:00)
[2022-06-03] MEDS: INSULIN LISPRO (NovoLOG) PER UNIT SC SCH ×2 (18:00→23:52)
[2022-06-03] MEDS: oxyCODONE 5MG TAB PO PRN (18:07)
[2022-06-03] MEDS: TAMSULOSIN 0.4 MG CAP PO SCH (21:56)
[2022-06-03 22:00] VITALS: BP 120/59
[2022-06-04] MEDS: VANCOMYCIN HCL 1,000 MG, VIAL MATE ADAPTER 1 EACH in D5W 250 ML IV SCH (02:38)
[2022-06-04] MEDS: PIPERACILLIN/TAZOBACTAM SOD 3.375 GM in D5W MINI-BAG PLUS 50 ML IV SCH ×4 (04:03→22:24)
[2022-06-04] MEDS: SODIUM CHLORIDE 0.9% INJ 10 ML SYR IV SCH ×2 (04:05→17:30)
[2022-06-04] MEDS: INSULIN LISPRO (NovoLOG) PER UNIT SC SCH ×3 (05:28→17:32)
[2022-06-04 06:00] VITALS: BP 121/59
[2022-06-04 06:25] LABS: BASO % 0.3 % (0.0-1.0); EOS # 0.1 10^3/uL (0.0-0.5); HEMATOCRIT 32.2 % (42.0-52.0); HEMOGLOBIN 9.5 g/dl (13.5-17.5); LYMPH # 0.9 10^3/uL (1.5-5.0); LYMPH % 7.5 % (24.0-44.0); MEAN CORPUSCULAR HEMOGLOBIN 22.7 pg (27.0-33.0); MEAN CORPUSCULAR HGB CONC 29.5 g/dl (32.0-36.5); MONO # 0.5 10^3/uL (0.0-0.8); MONO % 3.9 % (2.0-8.0); NEUTROPHILS # 10.7 10^3/uL (1.5-8.5); PLATELET COUNT, AUTOMATED 547 10^3/uL (150-450); RED BLOOD COUNT 4.18 10^6/uL (4.30-6.10); WHITE BLOOD COUNT 12.5 10^3/uL (4.0-10.0)
[2022-06-04 07:04] LABS: BLOOD UREA NITROGEN 7 MG/DL (7-18); C REACTIVE PROTEIN QUANTITATIV 4.49 MG/DL (0.00-0.30); CALCIUM LEVEL 7.7 MG/DL (8.8-10.2); CARBON DIOXIDE LEVEL 27 MEQ/L (21-32); CHLORIDE LEVEL 100 MEQ/L (98-107); CREATININE FOR GFR 0.84 MG/DL (0.70-1.30); GLOMERULAR FILTRATION RATE > 60.0 (>42); GLUCOSE, FASTING 99 MG/DL (70-100); POTASSIUM SERUM 4.2 MEQ/L (3.5-5.1); SODIUM LEVEL 134 MEQ/L (136-145)
[2022-06-04] MEDS: ADVAIR HFA 45/21MCG INHALER INH SCH ×2 (07:26→21:13)
[2022-06-04] MEDS: PANTOPRAZOLE 40MG VIAL IV SCH (08:30)
[2022-06-04] MEDS: VERAPAMIL 120MG SR TAB PO SCH (08:31)
[2022-06-04] MEDS: ENOXAPARIN 40MG/0.4ML SYRINGE (J1650 PER 10MG) SC SCH (08:31)
[2022-06-04] MEDS: oxyCODONE 5MG TAB PO PRN ×2 (08:53→21:52)
[2022-06-04] MEDS: METOCLOPRAMIDE INJ 10MG/2ML VIAL (J2765 PER 1) IV SCH ×2 (11:20→17:29)
[2022-06-04 14:00] VITALS: BP 128/57
[2022-06-04] MEDS ORDERED: AMINO AC/ELECTROLYTE/DEX/CALC 2,566 ML IV SCH (18:00)
[2022-06-04 20:56] VITALS: BP 127/64
[2022-06-04] MEDS: TAMSULOSIN 0.4 MG CAP PO SCH (21:51)
[2022-06-05] MEDS: PIPERACILLIN/TAZOBACTAM SOD 3.375 GM in D5W MINI-BAG PLUS 50 ML IV SCH ×4 (03:25→20:27)
[2022-06-05] MEDS: METOCLOPRAMIDE INJ 10MG/2ML VIAL (J2765 PER 1) IV SCH ×3 (03:25→17:29)
[2022-06-05] MEDS: SODIUM CHLORIDE 0.9% INJ 10 ML SYR IV SCH ×2 (05:20→17:30)
[2022-06-05 05:53] LABS: BASO % 0.3 % (0.0-1.0); EOS % 0.1 % (0.0-3.0); HEMATOCRIT 32.1 % (42.0-52.0); HEMOGLOBIN 9.5 g/dl (13.5-17.5); LYMPH % 8.8 % (24.0-44.0); MEAN CORPUSCULAR HEMOGLOBIN 22.7 pg (27.0-33.0); MEAN CORPUSCULAR HGB CONC 29.6 g/dl (32.0-36.5); MEAN CORPUSCULAR VOLUME 76.8 fl (80.0-96.0); MONO # 0.4 10^3/uL (0.0-0.8); MONO % 4.1 % (2.0-8.0); NEUTROPHILS # 9.3 10^3/uL (1.5-8.5); NEUTROPHILS % 85.5 % (36.0-66.0); PLATELET COUNT, AUTOMATED 513 10^3/uL (150-450); RED BLOOD COUNT 4.18 10^6/uL (4.30-6.10); WHITE BLOOD COUNT 10.8 10^3/uL (4.0-10.0)
[2022-06-05] MEDS: INSULIN LISPRO (NovoLOG) PER UNIT SC SCH ×4 (06:00→17:14)
[2022-06-05 06:11] VITALS: BP 137/64
[2022-06-05 06:51] LABS: BLOOD UREA NITROGEN 9 MG/DL (7-18); CARBON DIOXIDE LEVEL 24 MEQ/L (21-32); CHLORIDE LEVEL 103 MEQ/L (98-107); CREATININE FOR GFR 0.85 MG/DL (0.70-1.30); GLOMERULAR FILTRATION RATE > 60.0 (>42); GLUCOSE, FASTING 109 MG/DL (70-100); SODIUM LEVEL 135 MEQ/L (136-145)
[2022-06-05] MEDS: ADVAIR HFA 45/21MCG INHALER INH SCH ×2 (07:43→19:13)
[2022-06-05 08:07] LABS: HYPOCHROMASIA 1+; PLATELET ESTIMATE INCREASED (NORMAL)
[2022-06-05 08:08] LABS: ANISOCYTOSIS 4+; MICROCYTOSIS 1+; OVALOCYTES 1+
[2022-06-05] MEDS: PANTOPRAZOLE 40MG VIAL IV SCH (08:14)
[2022-06-05] MEDS: ENOXAPARIN 40MG/0.4ML SYRINGE (J1650 PER 10MG) SC SCH (08:14)
[2022-06-05] MEDS: VERAPAMIL 120MG SR TAB PO SCH (08:16)
[2022-06-05] MEDS ORDERED: FUROSEMIDE 20MG/2ML VIAL (J1940) IV ONE (08:20)
[2022-06-05] MEDS: oxyCODONE 5MG TAB PO PRN (08:48)
[2022-06-05] MEDS: MIRALAX *UNIT DOSE* 17GM PACKET PO SCH (09:58)
[2022-06-05 14:00] VITALS: BP 125/58
[2022-06-05] MEDS ORDERED: MULTIVITAMIN -ADULT INJECTION 10 ML, ZINC/COPPER/MANGANESE/SELENIUM 1 ML in AMINO AC/EL... IV SCH (18:00)
[2022-06-05] MEDS: TAMSULOSIN 0.4 MG CAP PO SCH (20:27)
[2022-06-05 20:58] VITALS: BP 130/63
[2022-06-05] MEDS: SODIUM CHLORIDE 0.9% INJ 10 ML SYR IV PRN (22:15)
[2022-06-06 02:00] VITALS: BP 128/63
[2022-06-06] MEDS: METOCLOPRAMIDE INJ 10MG/2ML VIAL (J2765 PER 1) IV SCH ×3 (02:38→18:52)
[2022-06-06] MEDS: PIPERACILLIN/TAZOBACTAM SOD 3.375 GM in D5W MINI-BAG PLUS 50 ML IV SCH ×4 (02:38→20:38)
[2022-06-06] MEDS: SODIUM CHLORIDE 0.9% INJ 10 ML SYR IV SCH ×2 (04:46→18:53)
[2022-06-06] MEDS: INSULIN LISPRO (NovoLOG) PER UNIT SC SCH ×4 (06:00→18:00)
[2022-06-06 06:26] VITALS: BP 131/64
[2022-06-06 06:30] LABS: BASO % 0.4 % (0.0-1.0); EOS # 0.4 10^3/uL (0.0-0.5); EOS % 3.8 % (0.0-3.0); HEMATOCRIT 30.4 % (42.0-52.0); HEMOGLOBIN 9.2 g/dl (13.5-17.5); LYMPH % 9.5 % (24.0-44.0); MEAN CORPUSCULAR HEMOGLOBIN 23.1 pg (27.0-33.0); MEAN CORPUSCULAR HGB CONC 30.3 g/dl (32.0-36.5); MEAN CORPUSCULAR VOLUME 76.4 fl (80.0-96.0); MONO # 0.5 10^3/uL (0.0-0.8); MONO % 4.7 % (2.0-8.0); NEUTROPHILS % 79.5 % (36.0-66.0); PLATELET COUNT, AUTOMATED 496 10^3/uL (150-450); RED BLOOD COUNT 3.98 10^6/uL (4.30-6.10)
[2022-06-06 06:50] LABS: BLOOD UREA NITROGEN 10 MG/DL (7-18); C REACTIVE PROTEIN QUANTITATIV 2.34 MG/DL (0.00-0.30); CALCIUM LEVEL 8.4 MG/DL (8.8-10.2); CARBON DIOXIDE LEVEL 26 MEQ/L (21-32); CHLORIDE LEVEL 101 MEQ/L (98-107); CREATININE FOR GFR 0.86 MG/DL (0.70-1.30); GLOMERULAR FILTRATION RATE > 60.0 (>42); GLUCOSE, FASTING 91 MG/DL (70-100); POTASSIUM SERUM 3.8 MEQ/L (3.5-5.1); SODIUM LEVEL 134 MEQ/L (136-145)
[2022-06-06 07:43] LABS: ANISOCYTOSIS 2+; HYPOCHROMASIA 1+; MICROCYTOSIS 2+; PLATELET ESTIMATE INCREASED (NORMAL)
[2022-06-06 07:44] LABS: OVALOCYTES 1+
[2022-06-06] MEDS: ADVAIR HFA 45/21MCG INHALER INH SCH ×2 (07:46→19:11)
[2022-06-06] MEDS: MIRALAX *UNIT DOSE* 17GM PACKET PO SCH (08:15)
[2022-06-06] MEDS: ENOXAPARIN 40MG/0.4ML SYRINGE (J1650 PER 10MG) SC SCH (08:15)
[2022-06-06] MEDS: PANTOPRAZOLE 40MG VIAL IV SCH (08:15)
[2022-06-06] MEDS: VERAPAMIL 120MG SR TAB PO SCH (08:20)
[2022-06-06] MEDS: SODIUM CHLORIDE 0.9% INJ 10 ML SYR IV PRN ×2 (10:25→22:22)
[2022-06-06 14:00] VITALS: BP 122/53
[2022-06-06] MEDS: oxyCODONE 5MG TAB PO PRN (15:52)
[2022-06-06] MEDS ORDERED: AMINO AC/ELECTROLYTE/DEX/CALC 2,566 ML IV SCH (18:00)
[2022-06-06 19:32] VITALS: BP 123/51
[2022-06-06] MEDS: TAMSULOSIN 0.4 MG CAP PO SCH (20:38)
[2022-06-07] MEDS: PIPERACILLIN/TAZOBACTAM SOD 3.375 GM in D5W MINI-BAG PLUS 50 ML IV SCH ×2 (02:43→07:53)
[2022-06-07] MEDS: METOCLOPRAMIDE INJ 10MG/2ML VIAL (J2765 PER 1) IV SCH (02:43)
[2022-06-07] MEDS: SODIUM CHLORIDE 0.9% INJ 10 ML SYR IV SCH ×2 (04:28→17:16)
[2022-06-07 06:00] VITALS: BP 141/59
[2022-06-07] MEDS: INSULIN LISPRO (NovoLOG) PER UNIT SC SCH ×4 (06:00→17:25)
[2022-06-07 06:13] LABS: BASO # 0.1 10^3/uL (0.0-0.2); BASO % 0.6 % (0.0-1.0); EOS % 0.4 % (0.0-3.0); HEMATOCRIT 31.1 % (42.0-52.0); HEMOGLOBIN 9.5 g/dl (13.5-17.5); LYMPH # 0.7 10^3/uL (1.5-5.0); LYMPH % 8.8 % (24.0-44.0); MEAN CORPUSCULAR HEMOGLOBIN 23.3 pg (27.0-33.0); MEAN CORPUSCULAR HGB CONC 30.5 g/dl (32.0-36.5); MEAN CORPUSCULAR VOLUME 76.4 fl (80.0-96.0); MONO # 0.5 10^3/uL (0.0-0.8); MONO % 6.1 % (2.0-8.0); NEUTROPHILS # 6.9 10^3/uL (1.5-8.5); NEUTROPHILS % 83.1 % (36.0-66.0); PLATELET COUNT, AUTOMATED 502 10^3/uL (150-450); RED BLOOD COUNT 4.07 10^6/uL (4.30-6.10); WHITE BLOOD COUNT 8.3 10^3/uL (4.0-10.0)
[2022-06-07 06:45] LABS: HYPOCHROMASIA 2+
[2022-06-07 06:46] LABS: MICROCYTOSIS 1+; OVALOCYTES 2+
[2022-06-07 06:49] LABS: PLATELET ESTIMATE INCREASED (NORMAL); SCHISTOCYTES 1+
[2022-06-07 06:51] LABS: BLOOD UREA NITROGEN 11 MG/DL (7-18); C REACTIVE PROTEIN QUANTITATIV 1.82 MG/DL (0.00-0.30); CARBON DIOXIDE LEVEL 22 MEQ/L (21-32); CHLORIDE LEVEL 105 MEQ/L (98-107); CREATININE FOR GFR 0.73 MG/DL (0.70-1.30); GLOMERULAR FILTRATION RATE > 60.0 (>42); GLUCOSE, FASTING 92 MG/DL (70-100); POTASSIUM SERUM 3.8 MEQ/L (3.5-5.1); SODIUM LEVEL 136 MEQ/L (136-145)
[2022-06-07] MEDS: ADVAIR HFA 45/21MCG INHALER INH SCH ×2 (07:34→20:56)
[2022-06-07] MEDS: VERAPAMIL 120MG SR TAB PO SCH (07:53)
[2022-06-07] MEDS: ENOXAPARIN 40MG/0.4ML SYRINGE (J1650 PER 10MG) SC SCH (07:54)
[2022-06-07] MEDS: PANTOPRAZOLE 40MG VIAL IV SCH (07:55)
[2022-06-07] MEDS: MIRALAX *UNIT DOSE* 17GM PACKET PO SCH (07:55)
[2022-06-07 14:00] VITALS: BP 139/58
[2022-06-07] MEDS ORDERED: MULTIVITAMIN -ADULT INJECTION 10 ML, ZINC/COPPER/MANGANESE/SELENIUM 1 ML in AMINO AC/EL... IV SCH (18:00)
[2022-06-07] MEDS: TAMSULOSIN 0.4 MG CAP PO SCH (21:45)
[2022-06-07 22:00] VITALS: BP 142/62
[2022-06-08] MEDS: SODIUM CHLORIDE 0.9% INJ 10 ML SYR IV SCH ×2 (05:30→18:49)
[2022-06-08 06:00] VITALS: BP 127/46
[2022-06-08] MEDS: INSULIN LISPRO (NovoLOG) PER UNIT SC SCH ×4 (06:00→18:00)
[2022-06-08] MEDS: ENOXAPARIN 40MG/0.4ML SYRINGE (J1650 PER 10MG) SC SCH (07:34)
[2022-06-08] MEDS: MIRALAX *UNIT DOSE* 17GM PACKET PO SCH (07:34)
[2022-06-08] MEDS: VERAPAMIL 120MG SR TAB PO SCH (07:34)
[2022-06-08] MEDS: PANTOPRAZOLE 40MG VIAL IV SCH (07:34)
[2022-06-08] MEDS: SODIUM CHLORIDE 0.9% INJ 10 ML SYR IV PRN (07:35)
[2022-06-08] MEDS: ADVAIR HFA 45/21MCG INHALER INH SCH ×2 (08:04→20:04)
[2022-06-08] MEDS ORDERED: PILL CUTTER 1 EACH XX PRN (08:50)
[2022-06-08] MEDS: SIMETHICONE 80MG CHEW TAB PO SCH ×4 (11:12→21:49)
[2022-06-08 14:00] VITALS: BP 139/59
[2022-06-08] MEDS: oxyCODONE 5MG TAB PO PRN (16:20)
[2022-06-08] MEDS ORDERED: INSULIN LISPRO (NovoLOG) PER UNIT SC SCH (18:00)
[2022-06-08] MEDS ORDERED: AMINO AC/ELECTROLYTE/DEX/CALC 2,566 ML IV ONE ×2 (18:00)
[2022-06-08] MEDS: TAMSULOSIN 0.4 MG CAP PO SCH (21:49)
[2022-06-08 22:00] VITALS: BP 127/50
[2022-06-09] MEDS: SODIUM CHLORIDE 0.9% INJ 10 ML SYR IV SCH ×2 (05:35→18:20)
[2022-06-09 06:00] VITALS: BP 124/49
[2022-06-09] MEDS: INSULIN LISPRO (NovoLOG) PER UNIT SC SCH ×4 (06:00→18:00)
[2022-06-09] MEDS: ADVAIR HFA 45/21MCG INHALER INH SCH ×2 (08:03→19:15)
[2022-06-09] MEDS: MIRALAX *UNIT DOSE* 17GM PACKET PO SCH (08:27)
[2022-06-09] MEDS: PANTOPRAZOLE 40MG VIAL IV SCH (08:27)
[2022-06-09] MEDS: ENOXAPARIN 40MG/0.4ML SYRINGE (J1650 PER 10MG) SC SCH (08:27)
[2022-06-09] MEDS: SODIUM CHLORIDE 0.9% INJ 10 ML SYR IV PRN (08:28)
[2022-06-09] MEDS: SIMETHICONE 80MG CHEW TAB PO SCH ×4 (08:29→21:04)
[2022-06-09] MEDS: VERAPAMIL 120MG SR TAB PO SCH (08:32)
[2022-06-09] MEDS ORDERED: BISACODYL 10 MG SUPP PR ONE (11:00)
[2022-06-09 14:00] VITALS: BP 121/49
[2022-06-09] MEDS ORDERED: AMINO AC/ELECTROLYTE/DEX/CALC 2,566 ML IV SCH (18:00)
[2022-06-09] MEDS: TAMSULOSIN 0.4 MG CAP PO SCH (21:04)
[2022-06-09 22:00] VITALS: BP 115/49
[2022-06-10 05:53] LABS: HEMOGLOBIN 9.6 g/dl (13.5-17.5); MEAN CORPUSCULAR VOLUME 76.7 fl (80.0-96.0); PLATELET COUNT, AUTOMATED 512 10^3/uL (150-450); RED BLOOD COUNT 4.17 10^6/uL (4.30-6.10); WHITE BLOOD COUNT 6.5 10^3/uL (4.0-10.0)
[2022-06-10 06:00] VITALS: BP 111/48
[2022-06-10] MEDS: INSULIN LISPRO (NovoLOG) PER UNIT SC SCH ×5 (06:00→23:01)
[2022-06-10] MEDS: SODIUM CHLORIDE 0.9% INJ 10 ML SYR IV SCH ×2 (06:05→18:14)
[2022-06-10 06:28] LABS: BLOOD UREA NITROGEN 11 MG/DL (7-18); CALCIUM LEVEL 8.4 MG/DL (8.8-10.2); CARBON DIOXIDE LEVEL 24 MEQ/L (21-32); CHLORIDE LEVEL 107 MEQ/L (98-107); CREATININE FOR GFR 0.59 MG/DL (0.70-1.30); GLOMERULAR FILTRATION RATE > 60.0 (>42); GLUCOSE, FASTING 90 MG/DL (70-100); POTASSIUM SERUM 4.3 MEQ/L (3.5-5.1); SODIUM LEVEL 137 MEQ/L (136-145)
[2022-06-10] MEDS: ADVAIR HFA 45/21MCG INHALER INH SCH ×2 (07:42→19:11)
[2022-06-10] MEDS: SIMETHICONE 80MG CHEW TAB PO SCH ×4 (09:11→21:14)
[2022-06-10] MEDS: MIRALAX *UNIT DOSE* 17GM PACKET PO SCH (09:11)
[2022-06-10] MEDS: VERAPAMIL 120MG SR TAB PO SCH (09:12)
[2022-06-10] MEDS: ENOXAPARIN 40MG/0.4ML SYRINGE (J1650 PER 10MG) SC SCH (09:12)
[2022-06-10] MEDS: PANTOPRAZOLE 40MG VIAL IV SCH (09:12)
[2022-06-10] MEDS: SODIUM CHLORIDE 0.9% INJ 10 ML SYR IV PRN (09:14)
[2022-06-10 14:00] VITALS: BP 117/51
[2022-06-10] MEDS ORDERED: MULTIVITAMIN -ADULT INJECTION 10 ML, ZINC/COPPER/MANGANESE/SELENIUM 1 ML in AMINO AC/EL... IV SCH (18:00)
[2022-06-10 20:00] VITALS: BP 117/52
[2022-06-10] MEDS: TAMSULOSIN 0.4 MG CAP PO SCH (21:14)
[2022-06-11] MEDS: SODIUM CHLORIDE 0.9% INJ 10 ML SYR IV SCH ×2 (05:16→17:55)
[2022-06-11 05:21] VITALS: BP 116/53
[2022-06-11 05:43] LABS: HEMATOCRIT 30.4 % (42.0-52.0); MEAN CORPUSCULAR HEMOGLOBIN 23.1 pg (27.0-33.0); MEAN CORPUSCULAR HGB CONC 29.6 g/dl (32.0-36.5); MEAN CORPUSCULAR VOLUME 77.9 fl (80.0-96.0); PLATELET COUNT, AUTOMATED 447 10^3/uL (150-450)
[2022-06-11] MEDS: INSULIN LISPRO (NovoLOG) PER UNIT SC SCH ×2 (06:00→12:00)
[2022-06-11 06:19] LABS: BLOOD UREA NITROGEN 10 MG/DL (7-18); CALCIUM LEVEL 8.4 MG/DL (8.8-10.2); CARBON DIOXIDE LEVEL 27 MEQ/L (21-32); CHLORIDE LEVEL 104 MEQ/L (98-107); CREATININE FOR GFR 0.66 MG/DL (0.70-1.30); GLOMERULAR FILTRATION RATE > 60.0 (>42); GLUCOSE, FASTING 84 MG/DL (70-100); POTASSIUM SERUM 4.1 MEQ/L (3.5-5.1); SODIUM LEVEL 135 MEQ/L (136-145)
[2022-06-11] MEDS: ADVAIR HFA 45/21MCG INHALER INH SCH ×2 (07:21→19:24)
[2022-06-11] MEDS: METOCLOPRAMIDE INJ 10MG/2ML VIAL (J2765 PER 1) IV SCH ×2 (09:00→17:54)
[2022-06-11] MEDS: MIRALAX *UNIT DOSE* 17GM PACKET PO SCH (09:21)
[2022-06-11] MEDS: ENOXAPARIN 40MG/0.4ML SYRINGE (J1650 PER 10MG) SC SCH (09:21)
[2022-06-11] MEDS: PANTOPRAZOLE 40MG VIAL IV SCH (09:22)
[2022-06-11] MEDS: SIMETHICONE 80MG CHEW TAB PO SCH ×4 (09:22→21:47)
[2022-06-11] MEDS: VERAPAMIL 120MG SR TAB PO SCH (09:24)
[2022-06-11] MEDS: SODIUM CHLORIDE 0.9% INJ 10 ML SYR IV PRN (09:25)
[2022-06-11 14:00] VITALS: BP 119/57
[2022-06-11 20:49] VITALS: BP 131/65
[2022-06-11] MEDS: TAMSULOSIN 0.4 MG CAP PO SCH (21:46)
[2022-06-11 21:47] VITALS: BP 130/66
[2022-06-11] MEDS: ACETAMINOPHEN TAB 650MG DOSE (2X325MG) PO PRN (21:51)
[2022-06-11 23:11] VITALS: BP 115/54
[2022-06-12] VITALS (7 sets, daily range): BP systolic 110–125; BP diastolic 52–61
[2022-06-12] MEDS: SODIUM CHLORIDE 0.9% INJ 10 ML SYR IV PRN ×3 (00:36→12:06)
[2022-06-12] MEDS: KCL 20MEQ IN D5/0.45NS 1000ML 1,000 ML IV SCH ×2 (00:36→10:16)
[2022-06-12] MEDS: METOCLOPRAMIDE INJ 10MG/2ML VIAL (J2765 PER 1) IV SCH ×3 (00:36→18:10)
[2022-06-12 06:25] LABS: HEMATOCRIT 30.3 % (42.0-52.0); HEMOGLOBIN 9.2 g/dl (13.5-17.5); MEAN CORPUSCULAR HEMOGLOBIN 23.3 pg (27.0-33.0); MEAN CORPUSCULAR HGB CONC 30.4 g/dl (32.0-36.5); MEAN CORPUSCULAR VOLUME 76.7 fl (80.0-96.0); PLATELET COUNT, AUTOMATED 423 10^3/uL (150-450); RED BLOOD COUNT 3.95 10^6/uL (4.30-6.10); WHITE BLOOD COUNT 8.3 10^3/uL (4.0-10.0)
[2022-06-12] MEDS: SODIUM CHLORIDE 0.9% INJ 10 ML SYR IV SCH ×2 (06:41→18:11)
[2022-06-12 06:53] LABS: BLOOD UREA NITROGEN 16 MG/DL (7-18); CALCIUM LEVEL 8.9 MG/DL (8.8-10.2); CARBON DIOXIDE LEVEL 23 MEQ/L (21-32); CHLORIDE LEVEL 103 MEQ/L (98-107); CREATININE FOR GFR 1.08 MG/DL (0.70-1.30); GLOMERULAR FILTRATION RATE > 60.0 (>42); GLUCOSE, FASTING 94 MG/DL (70-100); SODIUM LEVEL 132 MEQ/L (136-145)
[2022-06-12] MEDS: ADVAIR HFA 45/21MCG INHALER INH SCH ×2 (07:21→20:26)
[2022-06-12 07:56] LABS: C REACTIVE PROTEIN QUANTITATIV 5.08 MG/DL (0.00-0.30)
[2022-06-12] MEDS: ENOXAPARIN 40MG/0.4ML SYRINGE (J1650 PER 10MG) SC SCH (10:16)
[2022-06-12] MEDS: PANTOPRAZOLE 40MG VIAL IV SCH (10:16)
[2022-06-12] MEDS: SIMETHICONE 80MG CHEW TAB PO SCH ×4 (10:18→21:08)
[2022-06-12] MEDS: VERAPAMIL 120MG SR TAB PO SCH (10:19)
[2022-06-12] MEDS: MIRALAX *UNIT DOSE* 17GM PACKET PO SCH (10:23)
[2022-06-12] MEDS: CEFEPIME HCL 2 GM in D5W MINI-BAG PLUS 50 ML IV SCH ×2 (11:13→18:11)
[2022-06-12] MEDS: INSULIN LISPRO (NovoLOG) PER UNIT SC SCH ×2 (17:56→23:46)
[2022-06-12] MEDS ORDERED: MULTIVITAMIN -ADULT INJECTION 10 ML, ZINC/COPPER/MANGANESE/SELENIUM 1 ML in AMINO AC/EL... IV SCH (18:00)
[2022-06-12] MEDS: TAMSULOSIN 0.4 MG CAP PO SCH (21:08)
[2022-06-13 01:46] VITALS: BP 115/54
[2022-06-13] MEDS: METOCLOPRAMIDE INJ 10MG/2ML VIAL (J2765 PER 1) IV SCH ×3 (02:41→17:24)
[2022-06-13] MEDS: CEFEPIME HCL 2 GM in D5W MINI-BAG PLUS 50 ML IV SCH ×3 (02:41→18:38)
[2022-06-13] MEDS: SODIUM CHLORIDE 0.9% INJ 10 ML SYR IV SCH ×2 (05:21→18:38)
[2022-06-13] MEDS: INSULIN LISPRO (NovoLOG) PER UNIT SC SCH ×4 (06:00→23:58)
[2022-06-13 06:16] VITALS: BP 120/56
[2022-06-13 06:45] LABS: HEMATOCRIT 27.7 % (42.0-52.0); HEMOGLOBIN 8.6 g/dl (13.5-17.5); MEAN CORPUSCULAR VOLUME 77.4 fl (80.0-96.0); PLATELET COUNT, AUTOMATED 342 10^3/uL (150-450); RED BLOOD COUNT 3.58 10^6/uL (4.30-6.10); WHITE BLOOD COUNT 4.3 10^3/uL (4.0-10.0)
[2022-06-13 07:23] LABS: BLOOD UREA NITROGEN 17 MG/DL (7-18); C REACTIVE PROTEIN QUANTITATIV 5.63 MG/DL (0.00-0.30); CALCIUM LEVEL 8.4 MG/DL (8.8-10.2); CARBON DIOXIDE LEVEL 20 MEQ/L (21-32); CHLORIDE LEVEL 108 MEQ/L (98-107); GLOMERULAR FILTRATION RATE > 60.0 (>42); GLUCOSE, FASTING 97 MG/DL (70-100); POTASSIUM SERUM 3.6 MEQ/L (3.5-5.1); SODIUM LEVEL 133 MEQ/L (136-145)
[2022-06-13] MEDS: ADVAIR HFA 45/21MCG INHALER INH SCH ×2 (07:28→20:11)
[2022-06-13] MEDS: SIMETHICONE 80MG CHEW TAB PO SCH ×4 (08:21→20:07)
[2022-06-13] MEDS: PANTOPRAZOLE 40MG VIAL IV SCH (08:21)
[2022-06-13] MEDS: VERAPAMIL 120MG SR TAB PO SCH (08:21)
[2022-06-13] MEDS: ENOXAPARIN 40MG/0.4ML SYRINGE (J1650 PER 10MG) SC SCH (08:22)
[2022-06-13] MEDS: MIRALAX *UNIT DOSE* 17GM PACKET PO SCH (08:42)
[2022-06-13 10:00] VITALS: BP 120/56
[2022-06-13 14:00] VITALS: BP 119/59
[2022-06-13 18:00] VITALS: BP 123/59
[2022-06-13] MEDS ORDERED: AMINO AC/ELECTROLYTE/DEX/CALC 2,566 ML IV SCH (18:00)
[2022-06-13] MEDS: TAMSULOSIN 0.4 MG CAP PO SCH (20:07)
[2022-06-13 21:42] VITALS: BP 123/58
[2022-06-14] VITALS (7 sets, daily range): BP systolic 122–128; BP diastolic 55–76; O2SAT 94
[2022-06-14] MEDS: METOCLOPRAMIDE INJ 10MG/2ML VIAL (J2765 PER 1) IV SCH (02:29)
[2022-06-14] MEDS: CEFEPIME HCL 2 GM in D5W MINI-BAG PLUS 50 ML IV SCH ×3 (02:29→18:11)
[2022-06-14] MEDS: SODIUM CHLORIDE 0.9% INJ 10 ML SYR IV SCH ×2 (02:48→18:12)
[2022-06-14] MEDS: SODIUM CHLORIDE 0.9% INJ 10 ML SYR IV PRN (03:38)
[2022-06-14] MEDS: INSULIN LISPRO (NovoLOG) PER UNIT SC SCH ×3 (05:51→18:00)
[2022-06-14 06:33] LABS: HEMATOCRIT 29.9 % (42.0-52.0); MEAN CORPUSCULAR HEMOGLOBIN 23.5 pg (27.0-33.0); MEAN CORPUSCULAR HGB CONC 30.1 g/dl (32.0-36.5); MEAN CORPUSCULAR VOLUME 78.1 fl (80.0-96.0); PLATELET COUNT, AUTOMATED 381 10^3/uL (150-450); RED BLOOD COUNT 3.83 10^6/uL (4.30-6.10)
[2022-06-14 07:04] LABS: BLOOD UREA NITROGEN 12 MG/DL (7-18); CALCIUM LEVEL 8.3 MG/DL (8.8-10.2); CARBON DIOXIDE LEVEL 23 MEQ/L (21-32); CHLORIDE LEVEL 108 MEQ/L (98-107); GLOMERULAR FILTRATION RATE > 60.0 (>42); GLUCOSE, FASTING 85 MG/DL (70-100); SODIUM LEVEL 136 MEQ/L (136-145)
[2022-06-14] MEDS: ADVAIR HFA 45/21MCG INHALER INH SCH ×2 (08:03→19:48)
[2022-06-14] MEDS: MIRALAX *UNIT DOSE* 17GM PACKET PO SCH (09:00)
[2022-06-14] MEDS: PANTOPRAZOLE 40MG VIAL IV SCH (09:01)
[2022-06-14] MEDS: SIMETHICONE 80MG CHEW TAB PO SCH ×4 (09:02→19:53)
[2022-06-14] MEDS: VERAPAMIL 120MG SR TAB PO SCH (09:02)
[2022-06-14] MEDS: ENOXAPARIN 40MG/0.4ML SYRINGE (J1650 PER 10MG) SC SCH (09:02)
[2022-06-14] MEDS ORDERED: MULTIVITAMIN -ADULT INJECTION 10 ML, ZINC/COPPER/MANGANESE/SELENIUM 1 ML in AMINO AC/EL... IV SCH (18:00)
[2022-06-14] MEDS: TAMSULOSIN 0.4 MG CAP PO SCH (19:53)
[2022-06-15 02:15] VITALS: BP 117/55
[2022-06-15] MEDS: CEFEPIME HCL 2 GM in D5W MINI-BAG PLUS 50 ML IV SCH ×3 (03:59→18:56)
[2022-06-15] MEDS: SODIUM CHLORIDE 0.9% INJ 10 ML SYR IV SCH ×2 (05:01→18:56)
[2022-06-15 05:46] VITALS: BP 116/56
[2022-06-15] MEDS: INSULIN LISPRO (NovoLOG) PER UNIT SC SCH ×4 (06:00→18:00)
[2022-06-15 06:31] LABS: HEMATOCRIT 30.3 % (42.0-52.0); HEMOGLOBIN 9.2 g/dl (13.5-17.5); MEAN CORPUSCULAR HEMOGLOBIN 23.4 pg (27.0-33.0); MEAN CORPUSCULAR HGB CONC 30.4 g/dl (32.0-36.5); MEAN CORPUSCULAR VOLUME 77.1 fl (80.0-96.0); PLATELET COUNT, AUTOMATED 384 10^3/uL (150-450); RED BLOOD COUNT 3.93 10^6/uL (4.30-6.10); WHITE BLOOD COUNT 4.5 10^3/uL (4.0-10.0)
[2022-06-15 07:06] LABS: BLOOD UREA NITROGEN 11 MG/DL (7-18); C REACTIVE PROTEIN QUANTITATIV 1.33 MG/DL (0.00-0.30); CALCIUM LEVEL 8.4 MG/DL (8.8-10.2); CARBON DIOXIDE LEVEL 23 MEQ/L (21-32); CHLORIDE LEVEL 107 MEQ/L (98-107); GLOMERULAR FILTRATION RATE > 60.0 (>42); GLUCOSE, FASTING 87 MG/DL (70-100); POTASSIUM SERUM 3.9 MEQ/L (3.5-5.1); SODIUM LEVEL 136 MEQ/L (136-145)
[2022-06-15 07:41] VITALS: O2SAT 94
[2022-06-15] MEDS: ADVAIR HFA 45/21MCG INHALER INH SCH ×2 (07:41→19:21)
[2022-06-15] MEDS: MIRALAX *UNIT DOSE* 17GM PACKET PO SCH (09:00)
[2022-06-15] MEDS: PANTOPRAZOLE 40MG VIAL IV SCH (09:00)
[2022-06-15] MEDS: SIMETHICONE 80MG CHEW TAB PO SCH ×4 (09:00→21:00)
[2022-06-15] MEDS: ENOXAPARIN 40MG/0.4ML SYRINGE (J1650 PER 10MG) SC SCH (09:01)
[2022-06-15] MEDS: SODIUM CHLORIDE 0.9% INJ 10 ML SYR IV PRN ×2 (09:01→10:28)
[2022-06-15] MEDS: VERAPAMIL 120MG SR TAB PO SCH (09:02)
[2022-06-15 10:00] VITALS: BP 129/64
[2022-06-15 14:00] VITALS: BP 127/63
[2022-06-15] MEDS ORDERED: AMINO AC/ELECTROLYTE/DEX/CALC 2,566 ML IV SCH (18:00)
[2022-06-15 20:52] VITALS: BP 125/64
[2022-06-15] MEDS: TAMSULOSIN 0.4 MG CAP PO SCH (21:00)
[2022-06-16 02:00] VITALS: BP 127/58
[2022-06-16] MEDS: CEFEPIME HCL 2 GM in D5W MINI-BAG PLUS 50 ML IV SCH ×2 (03:43→10:43)
[2022-06-16] MEDS: SODIUM CHLORIDE 0.9% INJ 10 ML SYR IV PRN ×2 (04:31→10:43)
[2022-06-16 05:53] LABS: HEMATOCRIT 31.1 % (42.0-52.0); HEMOGLOBIN 9.7 g/dl (13.5-17.5); MEAN CORPUSCULAR HEMOGLOBIN 23.8 pg (27.0-33.0); MEAN CORPUSCULAR HGB CONC 31.2 g/dl (32.0-36.5); MEAN CORPUSCULAR VOLUME 76.4 fl (80.0-96.0); PLATELET COUNT, AUTOMATED 384 10^3/uL (150-450); RED BLOOD COUNT 4.07 10^6/uL (4.30-6.10); WHITE BLOOD COUNT 4.3 10^3/uL (4.0-10.0)
[2022-06-16] MEDS: SODIUM CHLORIDE 0.9% INJ 10 ML SYR IV SCH ×2 (05:58→17:47)
[2022-06-16] MEDS: INSULIN LISPRO (NovoLOG) PER UNIT SC SCH ×4 (06:00→17:48)
[2022-06-16 06:02] VITALS: BP 127/60
[2022-06-16 06:17] LABS: BLOOD UREA NITROGEN 11 MG/DL (7-18); C REACTIVE PROTEIN QUANTITATIV 0.87 MG/DL (0.00-0.30); CALCIUM LEVEL 8.6 MG/DL (8.8-10.2); CARBON DIOXIDE LEVEL 23 MEQ/L (21-32); CHLORIDE LEVEL 107 MEQ/L (98-107); CREATININE FOR GFR 0.57 MG/DL (0.70-1.30); GLOMERULAR FILTRATION RATE > 60.0 (>42); GLUCOSE, FASTING 91 MG/DL (70-100); SODIUM LEVEL 137 MEQ/L (136-145)
[2022-06-16] MEDS: ADVAIR HFA 45/21MCG INHALER INH SCH ×2 (07:38→19:41)
[2022-06-16 10:00] VITALS: BP 128/59
[2022-06-16] MEDS: MIRALAX *UNIT DOSE* 17GM PACKET PO SCH (10:40)
[2022-06-16] MEDS: PANTOPRAZOLE 40MG VIAL IV SCH (10:40)
[2022-06-16] MEDS: SIMETHICONE 80MG CHEW TAB PO SCH ×4 (10:41→20:03)
[2022-06-16] MEDS: ENOXAPARIN 40MG/0.4ML SYRINGE (J1650 PER 10MG) SC SCH (10:42)
[2022-06-16] MEDS: VERAPAMIL 120MG SR TAB PO SCH (10:42)
[2022-06-16 14:00] VITALS: BP 129/58
[2022-06-16] MEDS: ONDANSETRON 4MG 2ML VIAL IV PRN (17:51)
[2022-06-16] MEDS ORDERED: AMINO AC/ELECTROLYTE/DEX/CALC 2,566 ML IV SCH (18:00)
[2022-06-16 20:00] VITALS: BP 117/90
[2022-06-16] MEDS: TAMSULOSIN 0.4 MG CAP PO SCH (20:03)
[2022-06-17 02:30] VITALS: BP 105/46
[2022-06-17 05:36] VITALS: BP 107/46
[2022-06-17] MEDS: INSULIN LISPRO (NovoLOG) PER UNIT SC SCH ×5 (06:00→23:23)
[2022-06-17] MEDS: SODIUM CHLORIDE 0.9% INJ 10 ML SYR IV SCH ×2 (06:09→18:16)
[2022-06-17] MEDS: ADVAIR HFA 45/21MCG INHALER INH SCH ×2 (07:57→20:24)
[2022-06-17] MEDS: GASTROGRAFIN SOLUTION 30ML PO SCH ×2 (08:20→08:57)
[2022-06-17] MEDS ORDERED: ISOVUE-370 76% 100ML VIAL As Ordered ONE ×2 (08:22→10:22)
[2022-06-17] MEDS: MIRALAX *UNIT DOSE* 17GM PACKET PO SCH (08:39)
[2022-06-17] MEDS: SIMETHICONE 80MG CHEW TAB PO SCH ×4 (08:40→20:40)
[2022-06-17] MEDS: VERAPAMIL 120MG SR TAB PO SCH (08:43)
[2022-06-17] MEDS: ENOXAPARIN 40MG/0.4ML SYRINGE (J1650 PER 10MG) SC SCH (08:44)
[2022-06-17] MEDS: PANTOPRAZOLE 40MG VIAL IV SCH (08:46)
[2022-06-17] MEDS: SODIUM CHLORIDE 0.9% INJ 10 ML SYR IV PRN (09:55)
[2022-06-17 14:00] VITALS: BP 123/54
[2022-06-17] MEDS ORDERED: AMINO AC/ELECTROLYTE/DEX/CALC 2,566 ML IV SCH (18:00)
[2022-06-17] MEDS: TAMSULOSIN 0.4 MG CAP PO SCH (20:40)
[2022-06-17 22:00] VITALS: BP 126/56
[2022-06-18] MEDS: SODIUM CHLORIDE 0.9% INJ 10 ML SYR IV SCH ×2 (05:22→16:57)
[2022-06-18] MEDS ORDERED: MOM 30ML SUSPENSION UDC PO ONE (05:40)
[2022-06-18 06:00] VITALS: BP 116/44
[2022-06-18] MEDS: INSULIN LISPRO (NovoLOG) PER UNIT SC SCH ×2 (06:00→12:15)
[2022-06-18] MEDS: ADVAIR HFA 45/21MCG INHALER INH SCH ×2 (07:23→19:50)
[2022-06-18] MEDS: MIRALAX *UNIT DOSE* 17GM PACKET PO SCH (08:36)
[2022-06-18] MEDS: SIMETHICONE 80MG CHEW TAB PO SCH ×4 (08:37→20:37)
[2022-06-18] MEDS: VERAPAMIL 120MG SR TAB PO SCH (08:41)
[2022-06-18] MEDS: ENOXAPARIN 40MG/0.4ML SYRINGE (J1650 PER 10MG) SC SCH (08:42)
[2022-06-18] MEDS: PANTOPRAZOLE 40MG VIAL IV SCH (08:42)
[2022-06-18 14:00] VITALS: BP 112/55
[2022-06-18 19:45] VITALS: BP 114/55
[2022-06-18] MEDS: TAMSULOSIN 0.4 MG CAP PO SCH (20:37)
[2022-06-18] MEDS: SODIUM CHLORIDE 0.9% INJ 10 ML SYR IV PRN (20:38)
[2022-06-19] MEDS: SODIUM CHLORIDE 0.9% INJ 10 ML SYR IV SCH ×2 (02:34→18:07)
[2022-06-19 06:00] VITALS: BP 111/51
[2022-06-19] MEDS: ADVAIR HFA 45/21MCG INHALER INH SCH ×2 (07:34→19:36)
[2022-06-19] MEDS: VERAPAMIL 120MG SR TAB PO SCH (08:05)
[2022-06-19] MEDS: SIMETHICONE 80MG CHEW TAB PO SCH ×4 (08:06→19:53)
[2022-06-19] MEDS: MIRALAX *UNIT DOSE* 17GM PACKET PO SCH (08:07)
[2022-06-19] MEDS: PANTOPRAZOLE 40MG VIAL IV SCH (08:07)
[2022-06-19] MEDS: ENOXAPARIN 40MG/0.4ML SYRINGE (J1650 PER 10MG) SC SCH (08:07)
[2022-06-19 14:47] VITALS: BP 111/56
[2022-06-19] MEDS: TAMSULOSIN 0.4 MG CAP PO SCH (19:53)
[2022-06-19 20:04] VITALS: BP 121/58
[2022-06-20] MEDS: SODIUM CHLORIDE 0.9% INJ 10 ML SYR IV SCH (03:38)
[2022-06-20 05:58] VITALS: BP 122/58
[2022-06-20] MEDS: ADVAIR HFA 45/21MCG INHALER INH SCH (07:15)
[2022-06-20 08:14] VITALS: BP 132/66
[2022-06-20] MEDS: SIMETHICONE 80MG CHEW TAB PO SCH (08:14)
[2022-06-20] MEDS: MIRALAX *UNIT DOSE* 17GM PACKET PO SCH (08:14)
[2022-06-20] MEDS: VERAPAMIL 120MG SR TAB PO SCH (08:14)
[2022-06-20] MEDS: SODIUM CHLORIDE 0.9% INJ 10 ML SYR IV PRN (08:15)
[2022-06-20] MEDS: PANTOPRAZOLE 40MG VIAL IV SCH (08:15)
[2022-06-20] MEDS: ENOXAPARIN 40MG/0.4ML SYRINGE (J1650 PER 10MG) SC SCH (08:16)
[2022-06-20] MEDS ORDERED: MIRA1POW3 PO (08:51)
[2022-06-20] MEDS ORDERED: DULC5TAB PO (08:51)
[2022-06-20] MEDS ORDERED: VERA120T71 PO (08:51)
[2022-06-20] MEDS ORDERED: AMLO1TAB25 PO (08:51)
== END 2022-06-20 10:36 | disposition home or self-care (01) | DRG 329 ==
LOC: M OR 05:58 → M MSPAV 15:51
PROVIDERS: ADMIT Surgery; ATTEND Surgery
PROC: 8E0W4CZ Robotic Assisted Procedure of Trunk Region, Percutaneous Endoscopic Approach (ICD-10-PCS; 2022-05-16)
PROC: 0DTK4ZZ Resection of Ascending Colon, Percutaneous Endoscopic Approach (ICD-10-PCS; principal; 2022-05-16 07:30)
PROC: 02HV33Z Insertion of Infusion Device into Superior Vena Cava, Percutaneous Approach (ICD-10-PCS; 2022-05-22)
PROC: 0D180Z4 Bypass Small Intestine to Cutaneous, Open Approach (ICD-10-PCS; 2022-05-26)
PROC: 02HV33Z Insertion of Infusion Device into Superior Vena Cava, Percutaneous Approach (ICD-10-PCS; 2022-06-03)
DX: C18.2 Malignant neoplasm of ascending colon (principal); A41.9 Sepsis, unspecified organism; J69.0 Pneumonitis due to inhalation of food and vomit; N17.9 Acute kidney failure, unspecified; E87.1 Hypo-osmolality and hyponatremia; E46 Unspecified protein-calorie malnutrition; J98.11 Atelectasis; J96.11 Chronic respiratory failure with hypoxia; K91.30 Postprocedural intestinal obstruction, unspecified as to partial versus complete; J44.9 Chronic obstructive pulmonary disease, unspecified; I10 Essential (primary) hypertension; Z93.2 Ileostomy status; E87.6 Hypokalemia; D64.9 Anemia, unspecified; E78.5 Hyperlipidemia, unspecified; Z99.81 Dependence on supplemental oxygen; I48.0 Paroxysmal atrial fibrillation; L40.50 Arthropathic psoriasis, unspecified; I73.9 Peripheral vascular disease, unspecified

== ENCOUNTER → 2023-06-24 | Outpatient (REF) | payer MEDICARE ==
[~2023-06-24] MED LIST changes: +ADV500INH; +AMLO1TAB25 PO; +DULC5TAB PO; +FURO20TA2 PO; +FURO40TA2 PO; +METR-265 PO; +SENN-111 PO; -SENN18TA PO; +SPIR12.9; +VERA120T71 PO
== END ==
LOC: M SFHCDERM 12:12
PROVIDERS: ATTEND Nurse Practitioner Family
DX: L82.1 Other seborrheic keratosis (principal); L72.0 Epidermal cyst

== ENCOUNTER 2023-08-20 09:58 | Day surgery (SDC) | payer MEDICARE ==
[~2023-08-20] VITALS: Ht 182.9 cm; Wt 87.4 kg
[~2023-08-20 09:58] MED LIST changes: +ALBU8.5H; +NS 1,000 ML IV ONE; +VERA240C3 PO
[2023-08-20] MEDS ORDERED: LIDOCAINE 2% 100MG/5ML SDV (FOR ANES.) As Ordered ONE (11:40)
[2023-08-20] MEDS ORDERED: propofoL 200 MG/20 ML VIAL As Ordered ONE ×2 (11:40→12:15)
[2023-08-20 12:23] VITALS: TEMP 96.8
[2023-08-20 12:41] VITALS: BP 136/60; O2SAT 94
== END 2023-08-20 12:48 | disposition home or self-care (01) ==
LOC: M OPP 09:58
PROVIDERS: ATTEND Surgery
DX: Z12.11 Encounter for screening for malignant neoplasm of colon (principal); K63.5 Polyp of colon; K64.9 Unspecified hemorrhoids; K57.30 Diverticulosis of large intestine without perforation or abscess without bleeding; Z85.038 Personal history of other malignant neoplasm of large intestine; Z98.0 Intestinal bypass and anastomosis status; I48.91 Unspecified atrial fibrillation; I10 Essential (primary) hypertension; E78.00 Pure hypercholesterolemia, unspecified; J44.9 Chronic obstructive pulmonary disease, unspecified; Z79.899 Other long term (current) drug therapy; Z90.49 Acquired absence of other specified parts of digestive tract; Z99.81 Dependence on supplemental oxygen

== ENCOUNTER → 2025-04-20 | Outpatient (CLI) | payer MEDICARE ==
[~2025-04-20] MED LIST changes: -ADV100INH INH; -ADV500INH; +ADVA1AER10; +ADVA1AER8 INH; -MIRA1POW3 PO; +MIRA33506 PO; -NS 1,000 ML IV ONE; -PRAV80TA2 PO; +PRAV80TA75 PO; -SENN-111 PO; +SENN-165 PO
== END ==
LOC: M SOG 06:58
PROVIDERS: ATTEND Physician Assistant
DX: S52.502D Unspecified fracture of the lower end of left radius, subsequent encounter for closed fracture with routine healing (principal); Y93.9 Activity, unspecified; Y92.9 Unspecified place or not applicable